=== PATIENT | female | born 1935 | race Caucasian/White ===

== ENCOUNTER → 2016-08-10 | Outpatient (CLI) | payer MEDICARE ==
--- NOTE | 2016-08-10 08:45 | BD ---
EXAMINATION TYPE: MG DEXA axial skeleton. DATE OF EXAM: 08/10/2016 7:55 AM COMPARISON: NONE CLINICAL HISTORY: Height: 65.7 IN Weight: 157 LBS FRAX RISK QUESTIONS: Alcohol (3 or more units per day): NO Family History (Parent hip fracture): YES MOTHER Glucocorticoids (More than 3mos): NO (Ex: prednisone, prednisolone, methylprednisolone, dexamethasone, and hydrocortisone). History of Fracture in Adulthood: NO Secondary Osteoporosis: 1. Type 1 Diabetes: NO 2. Hyperthyroidism: NO 3. Menopause before 45: NO 4. Malnutrition: NO 5. Chronic liver disease: NO Rheumatoid Arthritis: NO Current Tobacco Use: NO RISK FACTORS HISTORY OF: Active: YES Postmenopausal woman: AGE 47 Take estrogen and/or progesterone medications: NOT NOW How long: AGE 47 - 71 MEDICATIONS: Thyroid Medications: YES Which medication: Synthroid How Lon+ YRS Additional Medications: CALCIUM, VIT D, SYNTHROID,LISINIPRIL, LIPITOR, BABY ASPIRIN, CURCUMIN-TURMERI C, FISH OIL, FISH OIL, Additional History: THYROID CANCER WITH ORAL RADIATION AGE 71 EXAM MEASUREMENTS: Bone mineral densitometry was performed using the [employer] System. Bone mineral density as measured about the Lumbar spine is: ----- L1-L4(G/cm2): 1.320 T Score Values are as follows: ----- L2: -0.5 ----- L3: 2.3 ----- L4: 3.0 ----- L1-L4: 1.2 Bone mineral density has: Increased 2.9% since study of: 10/12/2001 Bone mineral density about the R hip (g/cm2): 0.906 Bone mineral density about the L hip (g/cm2): 0.739 T Score values are as follows: -----R Neck: -0.9 -----L Neck: -2.2 -----R Intertrochanter: -2.3 -----L Intertrochanter: -2.0 Bone mineral density has: Decreased -12.9% since study of: 10/12/2001 IMPRESSION: Osteopenia (T Score between -2.5 and -1 as noted by T score values There is slightly increased risk of fracture and the patient may be considered for treatment. Re-Screen 1-2 years. NOTE: T-SCORE=SD OF THE YOUNG ADULT MEAN.
--- NOTE | 2016-08-11 12:56 | MM ---
Reason for exam: screening (asymptomatic). Last mammogram was performed 1 year and 2 months ago. History: Patient is postmenopausal and has history of other cancer at age 70. Took estrogen for 26 years beginning at age 47. Physical Findings: A clinical breast exam by your physician is recommended on an annual basis and results should be correlated with mammographic findings. MG 3D Screening Mammo W/Cad Bilateral CC and MLO view(s) were taken. Prior study comparison: June 02, 2015, bilateral MG 3d screening mammo w/cad. April 01, 2014, bilateral MG screening mammo w CAD. The breast tissue is heterogeneously dense. This may lower the sensitivity of mammography. There is no discrete abnormality. No significant changes when compared with prior studies. ASSESSMENT: Negative, BI-RAD 1 RECOMMENDATION: Routine screening mammogram of both breasts in 1 year.
== END | disposition home or self-care (01) ==
LOC: RADMAMWWP 07:49
PROVIDERS: ATTEND Internal Medicine
DX: Z12.31 Encounter for screening mammogram for malignant neoplasm of breast (principal); Z13.820 Encounter for screening for osteoporosis; M85.80 Other specified disorders of bone density and structure, unspecified site; N95.1 Menopausal and female climacteric states
CPT/HCPCS: 77080; 77063; G0202

== ENCOUNTER 2017-05-05 11:04 | Emergency (ER) | payer MEDICARE ==
[2017-05-05 11:14] VITALS: RESP 16; TEMP 97.9
[2017-05-05] MEDS ORDERED: ASPIRIN 81 MG PO STA (11:25)
[2017-05-05] MEDS ORDERED: NITROGLYCERIN SL TABS 0.4 MG TAB SUBLINGUAL STA (11:25)
--- NOTE | 2017-05-05 11:46 | ED ---
General Adult HPI - General Chief complaint: Back Pain/Injury Stated complaint: Left shoulder pain Time Seen by Provider: 05/05/17 11:15 Source: patient, RN notes reviewed Mode of arrival: ambulatory Limitations: no limitations - History of Present Illness Initial comments: Patient 81-year-old female who presents emergency room today with a chief complaint of pain to the left shoulder over the last 2 days. Patient does admit that it seems to be a constant ache. Denies any injury or trauma. States that started 2 days ago. States that she's had similar pain in the past but is never lasted this long. States usually goes away within the same today when she feels it. She states that seems to be better in the past when she would massage the area. She states seems feels slightly better when she holds her arm up in the air. She states it's not particularly tender on palpation or with movements. Denies any other complaints. Patient denies any recent fever, chills, shortness of breath, chest pain, back pain, abdominal pain, nausea or vomiting, numbness or tingling, dysuria or hematuria, constipation or diarrhea, headaches or visual changes, or any other complaints. - Related Data Home Medications Medication Instructions Recorded Confirmed Cholecalciferol [Vitamin D3] 2,000 unit PO DAILY 06/20/14 05/05/17 Levothyroxine Sodium [Synthroid] 125 mcg PO DAILY 06/20/14 05/05/17 Lisinopril [Zestril] 2.5 mg PO DAILY 06/20/14 05/05/17 Atorvastatin [Lipitor] 10 mg PO HS 05/18/16 05/05/17 Polyethylene Glycol 3350 [Miralax] 17 gm PO DAILY PRN 05/05/17 05/05/17 Previous Rx's Medication Instructions Recorded Hydrocodone/Acetaminophen [[place] 1 each PO Q6HR PRN #15 tab 05/05/17 5-325] Allergies Allergy/AdvReac Type Severity Reaction Status Date / Time amoxicillin Allergy Itching Verified 05/05/17 11:56 naproxen [From Naprosyn] Allergy Itching Verified 05/05/17 11:56 tetanus and diphtheria Allergy Redness, Verified 05/05/17 11:59 toxoids swelling epinephrine [From Adrenalin] AdvReac Rapid Verified 05/05/17 11:56 Heart Rate epinephrine HCl AdvReac Rapid Verified 05/05/17 11:56 [From Adrenalin] Heart Rate ibuprofen [From Motrin] AdvReac Unknown Verified 05/05/17 11:56 morphine AdvReac Nausea & Verified 05/05/17 11:56 Vomiting Review of Systems ROS Statement: Those systems with pertinent positive or pertinent negative responses have been documented in the HPI. ROS Other: All systems not noted in ROS Statement are negative. Past Medical History Past Medical History: Cancer, Hyperlipidemia, Hypertension, Osteoarthritis (OA) , Skin Disorder, Vascular Disorder Additional Past Medical History / Comment(s): Thyroid cancer, varicose veins, wound left leg from a fall. 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 History of Any Multi-Drug Resistant Organisms: None Reported Past Surgical History: Cholecystectomy, Hysterectomy, Joint Replacement, Tubal Ligation Additional Past Surgical History / Comment(s): thyroid removed bladder total hip replacemnet Past Anesthesia/Blood Transfusion Reactions: Postoperative Nausea & Vomiting ( PONV) Past Psychological History: No Psychological Hx Reported Smoking Status: Never smoker Past Drug Use History: None Reported - Past Family History Brother(s) Family Medical History: Cancer Mother Family Medical History: Hypertension, Rheumatoid Arthritis (RA) Additional Family Medical History / Comment(s): deafness. age 88 heart related Father Family Medical History: Pulmonary Embolus Additional Family Medical History / Comment(s): from blood clot from complications of MVA age 72. General Exam - General Exam Comments Initial Comments: General: The patient is awake and alert, in no distress, and does not appear acutely ill. Eye: Pupils are equal, round and reactive to light, extra-ocular movements are intact. No nystagmus. There is normal conjunctiva bilaterally. No signs of icterus. Ears, nose, mouth and throat: There are moist mucous membranes and no oral lesions. Neck: The neck is supple, there is no tenderness or JVD. Cardiovascular: There is a regular rate and rhythm. No murmur, rub or gallop is appreciated. Respiratory: Lungs are clear to auscultation, respirations are non-labored, breath sounds are equal. No wheezes, stridor, rales, or rhonchi. Gastrointestinal: Soft, non-distended, non-tender abdomen without masses or organomegaly noted. There is no rebound or guarding present. No CVA tenderness. Bowel sounds are unremarkable. Musculoskeletal: Normal ROM, no tenderness. Strength 5/5. Sensation intact. Pulses equal bilaterally 2+. Neurological: A&O x 3. CN II-XII intact, There are no obvious motor or sensory deficits. Coordination appears grossly intact. Speech is normal. Skin: Skin is warm and dry and no rashes or lesions are noted. Psychiatric: Cooperative, appropriate mood & affect, normal judgment. Limitations: no limitations Course Vital Signs 05/05/17 05/05/17 11:10 12:42 Temperature 97.9 F Pulse Rate 74 71 Respiratory 16 16 Rate Blood Pressure 134/84 141/73 O2 Sat by Pulse 98 99 Oximetry EKG Findings - EKG Comments: EKG Findings:: EKG performed at 11:30: Shows sinus rhythm with a first-degree AV block at 69 bpm IL interval 224. QRS 86. QT/QTC 376/402. No acute ST changes. Medical Decision Making - Medical Decision Making Case discussed in detail with attending physician Dr. Redding. Patient reexamined at this time shows no signs of distress resting comfortably. Patient 's EKG shows no acute abnormalities. Patient's labs are unremarkable. Patient does note that this pain has been for the last 2 days is positional. Patient is comfortable being discharged home. Advised short course of ibuprofen as she states she has taken this before without any problem. Advised that she can use [place] that she does have at home. Patient will also be given a prescription she cannot find her medication. Advised the family doctor over the next 2 days return to emergency room if any symptoms increase or worsen. - Lab Data Result diagrams: 05/05/17 11:45 05/05/17 11:45 Lab Results 05/05/17 05/05/17 05/05/17 Range/Units 11:45 11:45 11:45 WBC 9.3 (3.8-10.6) k/uL RBC 5.11 (3.80-5.40) m/uL Hgb 14.0 (11.4-16.0) gm/dL Hct 42.2 (34.0-46.0) % MCV 82.6 (80.0-100.0) fL MCH 27.4 (25.0-35.0) pg MCHC 33.2 (31.0-37.0) g/dL RDW 15.4 (11.5-15.5) % Plt Count 248 (150-450) k/uL Neutrophils % 76 % Lymphocytes % 17 % Monocytes % 5 % Eosinophils % 1 % Basophils % 0 % Neutrophils # 7.0 (1.3-7.7) k/uL Lymphocytes # 1.6 (1.0-4.8) k/uL Monocytes # 0.5 (0-1.0) k/uL Eosinophils # 0.1 (0-0.7) k/uL Basophils # 0.0 (0-0.2) k/uL PT (9.0-12.0) sec INR (<1.2) APTT (22.0-30.0) sec Sodium 136 L (137-145) mmol/L Potassium 4.5 (3.5-5.1) mmol/L Chloride 104 (98-107) mmol/L Carbon Dioxide 24 (22-30) mmol/L Anion Gap 8 mmol/L BUN 19 H (7-17) mg/dL Creatinine 0.70 (0.52-1.04) mg/dL Est GFR (MDRD) Af Amer >60 (>60 ml/min/1.73 sqM) Est GFR (MDRD) Non-Af >60 (>60 ml/min/1.73 sqM) Glucose 108 H (74-99) mg/dL Calcium 9.8 (8.4-10.2) mg/dL Magnesium 2.0 (1.6-2.3) mg/dL Total Bilirubin 0.6 (0.2-1.3) mg/dL AST 26 (14-36) U/L ALT 42 (9-52) U/L Alkaline Phosphatase 126 (38-126) U/L Total Creatine Kinase 123 (30-135) U/L CK-MB (CK-2) 3.4 H* (0.0-2.4) ng/mL CK-MB (CK-2) Rel Index 2.8 Troponin I <0.012 (0.000-0.034) ng/mL Total Protein 6.2 L (6.3-8.2) g/dL Albumin 4.1 (3.5-5.0) g/dL 05/05/ Range/Units 11:45 WBC (3.8-10.6) k/uL RBC (3.80-5.40) m/uL Hgb (11.4-16.0) gm/dL Hct (34.0-46.0) % MCV (80.0-100.0) fL MCH (25.0-35.0) pg MCHC (31.0-37.0) g/dL RDW (11.5-15.5) % Plt Count (150-450) k/uL Neutrophils % % Lymphocytes % % Monocytes % % Eosinophils % % Basophils % % Neutrophils # (1.3-7.7) k/uL Lymphocytes # (1.0-4.8) k/uL Monocytes # (0-1.0) k/uL Eosinophils # (0-0.7) k/uL Basophils # (0-0.2) k/uL PT 10.1 (9.0-12.0) sec INR 1.0 (<1.2) APTT 22.4 (22.0-30.0) sec Sodium (137-145) mmol/L Potassium (3.5-5.1) mmol/L Chloride (98-107) mmol/L Carbon Dioxide (22-30) mmol/L Anion Gap mmol/L BUN (7-17) mg/dL Creatinine (0.52-1.04) mg/dL Est GFR (MDRD) Af Amer (>60 ml/min/1.73 sqM) Est GFR (MDRD) Non-Af (>60 ml/min/1.73 sqM) Glucose (74-99) mg/dL Calcium (8.4-10.2) mg/dL Magnesium (1.6-2.3) mg/dL Total Bilirubin (0.2-1.3) mg/dL AST (14-36) U/L ALT (9-52) U/L Alkaline Phosphatase (38-126) U/L Total Creatine Kinase (30-135) U/L CK-MB (CK-2) (0.0-2.4) ng/mL CK-MB (CK-2) Rel Index Troponin I (0.000-0.034) ng/mL Total Protein (6.3-8.2) g/dL Albumin (3.5-5.0) g/dL Disposition Clinical Impression: Shoulder pain Disposition: HOME SELF-CARE Condition: Good Instructions: Shoulder Pain (ED) Additional Instructions: Please follow-up with family doctor over the next 2 days. Please use medications as discussed and return here to the emergency room if any symptoms increase or worsen or fail concerns. Prescriptions: Hydrocodone/Acetaminophen [[place] 5-325] 1 each PO Q6HR PRN #15 tab PRN Reason: Pain Referrals: Ness Williamson MD [Primary Care Provider] - 1-2 days Time of Disposition: 12:51
[2017-05-05 12:01] LABS: Basophils % (A) 0 %; CH 28.5; CHCM 34.8; Eosinophils # (A) 0.1 k/uL (0-0.7); Eosinophils % (A) 1 %; HCT 42.2 % (34.0-46.0); HDW 2.96; Luc # (Auto) 0.09; Luc % (Auto) 1; Lymphocytes # (A) 1.6 k/uL (1.0-4.8); Lymphocytes % (A) 17 %; MCH 27.4 pg (25.0-35.0); MCHC 33.2 g/dL (31.0-37.0); MCV 82.6 fL (80.0-100.0); Mean Platelet Volume 7.2; Monocytes # (A) 0.5 k/uL (0-1.0); Monocytes % (A) 5 %; Neutrophils % (A) 76 %; RBC 5.11 m/uL (3.80-5.40); RDW 15.4 % (11.5-15.5); WBC 9.3 k/uL (3.8-10.6); WBC (Perox) 9.28
--- NOTE | 2017-05-05 12:09 | XR ---
EXAMINATION TYPE: XR chest 2V DATE OF EXAM: 05/05/2017 COMPARISON: 10/30/1713 HISTORY: Shortness of breath TECHNIQUE: Frontal and lateral views of the chest are obtained. FINDINGS: Scattered senescent parenchymal changes noted. Hyperinflation compatible with COPD. No evidence for infiltrate. No evidence for atelectasis. Heart size is stable. Mediastinal structures are stable and grossly unremarkable. No evidence for hilar prominence. Degenerative changes dorsal spine. IMPRESSION: 1. No evidence for acute pulmonary disease.
[2017-05-05 12:10] LABS: Partial Thromboplastin Time 22.4 sec (22.0-30.0); Prothrombin Time 10.1 sec (9.0-12.0)
[2017-05-05 12:11] LABS: ALT 42 U/L (9-52); AST 26 U/L (14-36); Alkaline Phosphatase 126 U/L (38-126); Anion Gap 8 mmol/L; Blood Urea Nitrogen 19 mg/dL (7-17); Calcium 9.8 mg/dL (8.4-10.2); Carbon Dioxide 24 mmol/L (22-30); Chloride 104 mmol/L (98-107); Glucose 108 mg/dL (74-99); Non-African American GFR(MDRD) >60 (>60 ml/min/1.73 sqM); Potassium 4.5 mmol/L (3.5-5.1); Sodium 136 mmol/L (137-145); Total Bilirubin 0.6 mg/dL (0.2-1.3); Total Protein 6.2 g/dL (6.3-8.2)
[2017-05-05 12:20] LABS: Creatine Kinase 123 U/L (30-135)
[2017-05-05 12:33] LABS: Troponin I <0.012 ng/mL (0.000-0.034)
[2017-05-05 12:34] LABS: Creatine Kinase MB 3.4 ng/mL (0.0-2.4)
[2017-05-05 12:44] VITALS: BP 141/73; PULSE 71
== END 2017-05-05 13:13 | disposition home or self-care (01) ==
LOC: EC 11:04
DX: M25.512 Pain in left shoulder (principal); E78.5 Hyperlipidemia, unspecified; I10 Essential (primary) hypertension; Z85.850 Personal history of malignant neoplasm of thyroid; Z96.649 Presence of unspecified artificial hip joint; Z88.0 Allergy status to penicillin; Z88.5 Allergy status to narcotic agent; Z88.6 Allergy status to analgesic agent; Z88.7 Allergy status to serum and vaccine; Z88.8 Allergy status to other drugs, medicaments and biological substances; Z79.899 Other long term (current) drug therapy
CPT/HCPCS: 36415; 71020; 80053; 82550; 82553; 83735; 84484; 85025; 85610; 85730; 93005; 99284

== ENCOUNTER → 2017-05-09 | Outpatient (CLI) | payer MEDICARE ==
--- NOTE | 2017-05-09 11:33 | XR ---
EXAMINATION TYPE: XR cervical spine comp DATE OF EXAM: 05/09/2017 COMPARISON: NONE HISTORY: Pain TECHNIQUE: Four views are submitted. FINDINGS: The odontoid is intact. There are no compression deformities. The prevertebral soft tissue structur es are within normal limits. There is multilevel degenerative disc disease with anterior spur format ion. There is a 2 mm anterolisthesis of C2 on C3. Severe degenerative disc disease at C5-C6 with post erior spondylosis. Moderate to severe changes C6-C7. Multilevel facet arthropathy. There is multileve l foraminal encroachment. Findings appear greater on the left. IMPRESSION: 1. Multilevel moderate to severe degenerative disc disease with most marked findings at C5-C6 and C6- C7. Foraminal encroachment suspected recommend follow-up MRI. 2. Slight anterolisthesis C2 on C3 also could be assessed with MRI.
== END | disposition home or self-care (01) ==
LOC: RADXRMAIN 10:44
PROVIDERS: ATTEND Internal Medicine
DX: M50.322 Other cervical disc degeneration at C5-C6 level (principal); M43.12 Spondylolisthesis, cervical region
CPT/HCPCS: 72050

== ENCOUNTER → 2017-08-26 | Outpatient (CLI) | payer MEDICARE ==
--- NOTE | 2017-08-29 12:49 | MM ---
Reason for exam: screening (asymptomatic). Last mammogram was performed 1 year and 1 month ago. History: Patient is postmenopausal and has history of other cancer at age 70. Took estrogen for 26 years beginning at age 47. Physical Findings: A clinical breast exam by your physician is recommended on an annual basis and results should be correlated with mammographic findings. MG 3D Screening Mammo W/Cad Bilateral CC and MLO view(s) were taken. Prior study comparison: August 10, 2016, bilateral MG 3d screening mammo w/cad. June 02, 2015, bilateral MG 3d screening mammo w/cad. There are scattered fibroglandular densities. No significant changes when compared with prior studies. ASSESSMENT: Negative, BI-RAD 1 RECOMMENDATION: Routine screening mammogram of both breasts in 1 year.
== END | disposition home or self-care (01) ==
LOC: RADMAMWWP 14:44
PROVIDERS: ATTEND Internal Medicine
DX: Z12.31 Encounter for screening mammogram for malignant neoplasm of breast (principal)
CPT/HCPCS: 77063; 77067

== ENCOUNTER → 2017-09-21 | Outpatient (CLI) | payer MEDICARE ==
--- NOTE | 2017-09-21 15:03 | XR ---
Left knee HISTORY: Left knee pain 3 views of the left knee, comparison to prior left leg 06/20/2014 There is marginal spurring present tricompartmentally. Alignment is maintained. Joint space loss is n oted especially at the patellofemoral joint and also the medial compartment greater than lateral. Sub chondral sclerosis is noted especially at the patellofemoral joint. Distal femur shows chronic anteri or cortical defect on the lateral exam. There may be a small joint effusion. IMPRESSION: Osteoarthritis.
== END | disposition home or self-care (01) ==
LOC: RADXRMAIN 12:17
PROVIDERS: ATTEND Internal Medicine
DX: M17.12 Unilateral primary osteoarthritis, left knee (principal)

== ENCOUNTER → 2018-01-09 | Outpatient (CLI) | payer MEDICARE ==
--- NOTE | 2018-01-09 23:11 | MR ---
EXAMINATION TYPE: MR cervical spine wo con DATE OF EXAM: 01/09/2018 COMPARISON: 05/12/2017 HISTORY: Neck pain TECHNIQUE: Multiplanar, multisequence images of the cervical spine were acquired. The cervical vertebra have normal alignment. There is mild narrowing of the disc spaces and more noti ceable at C5-6. There is small posterior disc herniation at C6-7. There is developmentally adequate c anal and no significant spinal stenosis. Spinal canal is narrowed to 7 to 8 mm at C6-7. There is also a minute posterior spurring and disc bulging at C3-3-4 C4-5 C5-6. There are small posterior disc her niation at T3-T4. Cervical spinal cord has normal signal pattern. There is no edema. There is no comp ression fracture. The posterior elements are intact. I see no bony destructive process. IMPRESSION: Mild multilevel spondylotic changes. Mild posterior C6-7 cervical disc herniation without significant spinal stenosis. No change compared to old exam. No fracture.
== END | disposition home or self-care (01) ==
LOC: RADMRIMAIN 18:36
PROVIDERS: ATTEND Internal Medicine
DX: M47.22 Other spondylosis with radiculopathy, cervical region (principal); M50.123 Cervical disc disorder at C6-C7 level with radiculopathy
CPT/HCPCS: 72141

== ENCOUNTER → 2018-04-27 | Outpatient (CLI) | payer MEDICARE ==
--- NOTE | 2018-04-28 10:20 | ECHOF ---
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 This was a technically good study. The left ventricular size is normal. Left ventricular wall thickness is normal. Overall left vent ricular systolic function is normal with, an EF between 55 - 60 %. The right ventricle is normal in size and function. The left atrium is normal in size. The right atrium is normal in size. There is mild aortic regurgitation. The mitral valve is normal. There is trace mitral regurgitation. Trace tricuspid regurgitation present. The right ventricular systolic pressure, as measured by Dopp ler, is 20.42mmHg. Pulmonic valve appears structurally normal. The aortic root size is normal. Normal inferior vena cava with normal inspiratory collapse consistent with estimated right atrial pre ssure of 5 mmHg. The pericardium is normal. CONCLUSIONS -------- 1. Sinus rhythm. 2. This was a technically good study. 3. The left ventricular size is normal. 4. Left ventricular wall thickness is normal. 5. Overall left ventricular systolic function is normal with, an EF between 55 - 60 %. 6. The right ventricle is normal in size and function. 7. The left atrium is normal in size. 8. The right atrium is normal in size. 9. There is mild aortic regurgitation. 10. The mitral valve is normal. 11. There is trace mitral regurgitation. 12. Trace tricuspid regurgitation present. 13. The right ventricular systolic pressure, as measured by Doppler, is 20.42mmHg. 14. Pulmonic valve appears structurally normal. 15. The aortic root size is normal. 16. Normal inferior vena cava with normal inspiratory collapse consistent with estimated right atrial pressure of 5 mmHg. 17. The pericardium is normal. COSTUME RENTAL CLERK: Apolonia Murray RDCS
--- NOTE | 2018-04-28 10:53 | US ---
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 EXAM MEASUREMENTS: RIGHT: Peak Systolic Velocity (PSV) cm/sec ----- Right CCA: 94.2 ----- Right ICA: 76.8 ----- Right ECA: 67.4 ICA/CCA ratio: 0.8 RIGHT: End Diastole cm/sec ----- Right CCA: 27.3 ----- Right ICA: 29.0 ----- Right ECA: 67.4 LEFT: Peak Systolic Velocity (PSV) cm/sec ----- Left CCA: 80.7 ----- Left ICA: 68.7 ----- Left ECA: 71.9 ICA/CCA ratio: 0.8 LEFT: End Diastole cm/sec ----- Left CCA: 23.1 ----- Left ICA: 22.5 ----- Left ECA: 13.8 VERTEBRALS (direction of flow): Right Vertebral: Antegrade Left Vertebral: Antegrade Rhythm: Normal No significant velocity elevations. IMPRESSION: 1. No evidence of significant hemodynamic stenosis. 2 intimal thickening and small focal areas of c alcified plaque. Criteria for Assigning % of Stenosis / Diameter reduction (Estimation based on the indirect measurements of the internal carotid artery velocities (ICA PSV). 1. Normal (no stenosis)=ICA PSV < 125 cm/s: ratio < 2.0: ICA EDV<40 cm/s. 2. Less than 50% stenosis=ICA PSV < 125 cm/s: ratio < 2.0: ICA EDV<40 cm/s. 3. 50 to 69% stenosis=ICA PSV of 125 to 230 cm/s: ration 2.0 ? 4.0: ICA EDV 40-100 cm/s. 4. Greater than 70% stenosis to near occlusion= ICA PSV > 230 cm/s: ratio > 4.0: ICA EDV > 100 cm/s. 5. Near occlusion= ICA PSV velocities may be low or undetectable: variable ratio and ICA EDV. 6. Total occlusion=unable to detect flow.
== END | disposition home or self-care (01) ==
LOC: RADECHMAIN 14:32
PROVIDERS: ATTEND Internal Medicine
DX: I35.1 Nonrheumatic aortic (valve) insufficiency (principal); I65.23 Occlusion and stenosis of bilateral carotid arteries; I77.810 Thoracic aortic ectasia
CPT/HCPCS: 93306; 93880

== ENCOUNTER → 2018-08-30 | Outpatient (CLI) | payer MEDICARE ==
--- NOTE | 2018-08-30 13:25 | MM ---
Reason for exam: screening (asymptomatic). Last mammogram was performed 1 year ago. History: Patient is postmenopausal and has history of other cancer at age 70. Took estrogen for 26 years beginning at age 47. Physical Findings: A clinical breast exam by your physician is recommended on an annual basis and results should be correlated with mammographic findings. MG 3D Screening Mammo W/Cad Bilateral CC and MLO view(s) were taken. Prior study comparison: August 26, 2017, bilateral MG 3d screening mammo w/cad. August 10, 2016, bilateral MG 3d screening mammo w/cad. The breast tissue is heterogeneously dense. This may lower the sensitivity of mammography. There is no discrete abnormality. No significant changes when compared with prior studies. ASSESSMENT: Negative, BI-RAD 1 RECOMMENDATION: Routine screening mammogram of both breasts in 1 year.
== END ==
LOC: RADMAMWWP 06:54
PROVIDERS: ATTEND Internal Medicine
DX: Z12.31 Encounter for screening mammogram for malignant neoplasm of breast (principal)
CPT/HCPCS: 77063; 77067

== ENCOUNTER → 2018-10-09 | Outpatient (CLI) | payer MEDICARE | END | disposition home or self-care (01) | LOC: LABWHC1 10:24 | PROVIDERS: ATTEND Obstetrics & Gynecology | DX: N39.0 Urinary tract infection, site not specified (principal) | CPT/HCPCS: 87086 ==

== ENCOUNTER 2018-10-20 11:49 | Day surgery (SDC) | payer MEDICARE ==
[2018-10-19 10:18] VITALS: BMI 24.2
[2018-10-20 13:07] VITALS: TEMP 97.6
[2018-10-20] MEDS ORDERED: LIDOCAINE 1% 20 ML VIAL (10MG/ML) FOR IV START INTRADERMA ONE (13:14)
[2018-10-20] MEDS ORDERED: LACTATED RINGERS 1,000 ML IV ONE (13:14)
[2018-10-20] MEDS ORDERED: PROPOFOL 10 MG/ML 20 ML VIAL IV ONE (13:18)
--- NOTE | 2018-10-20 13:40 | P.PCN ---
Date of Procedure: 10/20/18 Procedure(s) Performed: BRIEF HISTORY: Patient is a 83-year-old pleasant white female, scheduled for an elective colonoscopy as a part of evaluation of Hemoccult-positive stool. PROCEDURE PERFORMED: Colonoscopy with snare polypectomy. PREOPERATIVE DIAGNOSIS: Hemoccult-positive stool. IV sedation per Anesthesia. PROCEDURE: After informed consent was obtained, the patient, was brought into the endoscopy unit. IV sedation was administered by Anesthesia under continuous monitoring. Digital rectal examination was normal. Initially the Olympus CF-160 flexible video colonoscope was then inserted in the rectum, gradually advanced into the cecum without any difficulty. Careful examination was performed as the scope was gradually being withdrawn. Ileocecal valve and the appendiceal orifice were visualized and appeared normal. Prep was fair. In the base of the cecum there was a 7-8 mm sessile polyp that was removed by snare polypectomy. Mucosa of the cecum, ascending colon, transverse colon, descending colon, sigmoid colon, and rectum appeared normal. Scattered left sided diverticulosis seen. Retroflexion was performed in the rectum and no lesions were seen. The patient tolerated the procedure well. IMPRESSION: 7-8 mm sessile cecal polyp status post polypectomy Scattered left-sided diverticulosis RECOMMENDATIONS: Findings of this examination were discussed with the patient as well as her family. She was advised to follow with the biopsy results. She'll continue with a high-fiber diet and fiber supplements as needed..
[2018-10-20 14:07] VITALS: BP 138/78; PULSE 78; RESP 18
== END 2018-10-20 14:16 | disposition home or self-care (01) ==
LOC: ORWHC2ENDO 11:49
PROVIDERS: ATTEND Internal Medicine Gastroenterology
DX: K57.30 Diverticulosis of large intestine without perforation or abscess without bleeding (principal); D12.0 Benign neoplasm of cecum; Z79.890 Hormone replacement therapy; Z79.899 Other long term (current) drug therapy; Z88.6 Allergy status to analgesic agent; Z88.1 Allergy status to other antibiotic agents; Z88.8 Allergy status to other drugs, medicaments and biological substances; I10 Essential (primary) hypertension; E78.5 Hyperlipidemia, unspecified; M19.90 Unspecified osteoarthritis, unspecified site; Z79.82 Long term (current) use of aspirin
CPT/HCPCS: 88305; 45385; J2704

== ENCOUNTER → 2019-04-30 | Outpatient (CLI) | payer MEDICARE | END | disposition home or self-care (01) | LOC: LABWHC1 09:09 | PROVIDERS: ATTEND Orthopaedic Surgery | DX: Z47.1 Aftercare following joint replacement surgery (principal); Z96.652 Presence of left artificial knee joint | CPT/HCPCS: 36415; 85652; 86140 ==

== ENCOUNTER → 2019-05-02 | Outpatient (CLI) | payer MEDICARE ==
--- NOTE | 2019-05-03 05:05 | MR ---
EXAMINATION TYPE: MR brain wo/w con DATE OF EXAM: 05/02/2019 COMPARISON: None HISTORY: Dizziness, arabella hearing loss, transient cerebral ischemia TECHNIQUE: Multiplanar, multisequence images of the brain and brainstem is performed without and with IV contras t, utilizing 7 mL intravenous Gadavist . FINDINGS: There is some mild cerebral atrophy. There is no mass effect nor midline shift. There is no sign of intracranial hemorrhage. There is no evidence of cortical infarct. On the T2 and FLAIR image s there are numerous foci of abnormal increased signal at the babcock-white matter junction of both cere bral hemispheres and adjacent to the lateral ventricles. Total number of lesions is more than 25. The se measure up to 10 mm. The brainstem is intact. Cerebellum is intact. Corpus callosum is intact. The sella turcica is intact. There is a 10 mm area of enhancement in the left posterior temporal lobe that is probably extra-axial and related to meningioma. There is normal enhancement of the venous sinuses. There is no evidence o f cerebral edema. There is mucosal thickening and mucus retention cysts in the maxillary sinuses. There is mucosal thic kening in the ethmoid sinuses. IMPRESSION: Mild atrophy. White matter signal changes could relate to both demyelinating disease and chronic small vessel ischemia. No evidence of cortical infarct. There is a 10 mm extra-axial enhancin g focus in the left posterior temporal lobe consistent with meningioma.
--- NOTE | 2019-05-03 10:37 | BD ---
EXAMINATION TYPE: Axial Bone Density DATE OF EXAM: 05/02/2019 COMPARISON: 08/10/2016 CLINICAL HISTORY: Height: 65.2 IN Weight: 154 LBS FRAX RISK QUESTIONS: Family History (Parent hip fracture): YES MOTHER RISK FACTORS HISTORY OF: Surgery to Hip(right): AGE 81 Active: YES Postmenopausal woman: AGE 46 Take estrogen and/or progesterone medications: NOT NOW How long: PREVIOUSLY TOOK FOR 20 YEARS MEDICATIONS: Thyroid Medications: YES Which medication: Synthroid How Lon YEARS Additional Medications: SYNTHROID,LISINOPRIL, LIPITOR, VIT D, BABY ASPIRIN EXAM MEASUREMENTS: Bone mineral densitometry was performed using the [employer] System. Bone mineral density as measured about the Lumbar spine is: ----- L1-L4(G/cm2): 1.213 T Score Values are as follows: ----- L2: -0.8 ----- L3: 1.4 ----- L4: 1.8 ----- L1-L4: 0.3 Bone mineral density has: Decreased -7.7% since study of: 08/10/2016 Bone mineral density about the L hip (g/cm2): 0.751 T Score values are as follows: -----L Neck: -2.1 -----L Total: -1.9 Bone mineral density has: Decreased -6.1% since study of: 08/10/2016 IMPRESSION: Osteopenia of the left femur. NOTE: T-SCORE=SD OF THE YOUNG ADULT MEAN.
== END | disposition home or self-care (01) ==
LOC: RADBDWWP 16:11
PROVIDERS: ATTEND Internal Medicine
DX: G31.9 Degenerative disease of nervous system, unspecified (principal); R90.89 Other abnormal findings on diagnostic imaging of central nervous system; M85.852 Other specified disorders of bone density and structure, left thigh
CPT/HCPCS: 77080; 70553; A9585

== ENCOUNTER → 2020-04-29 | Outpatient (CLI) | payer MEDICARE ==
--- NOTE | 2020-04-29 14:21 | XR ---
EXAM TYPE: LUMBAR SPINE X RAY SERIES COMPARISON: NONE HISTORY: Pain TECHNIQUE: 4 views are submitted. FINDINGS: Alignment is anatomic. The pedicles are intact. The transverse processes are intact. There is no s pondylolysis or spondylolisthesis. Curvature of the spine with multilevel hypertrophic and degenerat ann changes. Multilevel facet arthropathy. Surgical clips in the abdomen. IMPRESSION: 1. 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
== END | disposition home or self-care (01) ==
LOC: RADXRMAIN 13:56
PROVIDERS: ATTEND Internal Medicine
DX: M51.06 Intervertebral disc disorders with myelopathy, lumbar region (principal); M47.16 Other spondylosis with myelopathy, lumbar region
CPT/HCPCS: 72100

== ENCOUNTER → 2020-06-10 | Outpatient (CLI) | payer MEDICARE ==
--- NOTE | 2020-06-11 14:37 | MM ---
Reason for exam: screening (asymptomatic). Last mammogram was performed 1 year and 9 months ago. History: Patient is postmenopausal and has history of other cancer at age 70. Took estrogen for 26 years beginning at age 47. Physical Findings: A clinical breast exam by your physician is recommended on an annual basis and results should be correlated with mammographic findings. MG 3D Screening Mammo W/Cad Bilateral CC and MLO view(s) were taken. Prior study comparison: August 30, 2018, bilateral MG 3d screening mammo w/cad. August 26, 2017, bilateral MG 3d screening mammo w/cad. There are scattered fibroglandular densities. No significant changes when compared with prior studies. ASSESSMENT: Benign, BI-RAD 2 RECOMMENDATION: Routine screening mammogram of both breasts in 1 year.
== END | disposition home or self-care (01) ==
LOC: RADMAMWWP 09:15
PROVIDERS: ATTEND Internal Medicine
DX: Z12.31 Encounter for screening mammogram for malignant neoplasm of breast (principal)
CPT/HCPCS: 77063; 77067

== ENCOUNTER → 2020-06-26 | Outpatient (CLI) | payer MEDICARE ==
--- NOTE | 2020-06-26 15:44 | XR ---
EXAMINATION TYPE: XR Hip Complete RT DATE OF EXAM: 06/26/2020 COMPARISON: NONE HISTORY: Pain TECHNIQUE: One view submitted. FINDINGS: There is postsurgical change in near anatomic alignment. There is soft tissue edema and emphysema. IMPRESSION: 1. Postoperative change. Appears in near-anatomic alignment.
== END | disposition home or self-care (01) ==
LOC: RADXRMAIN 15:21
PROVIDERS: ATTEND Internal Medicine
DX: M25.551 Pain in right hip (principal); Z98.890 Other specified postprocedural states
CPT/HCPCS: 73502

== ENCOUNTER → 2020-08-25 | Outpatient (CLI) | payer MEDICARE ==
--- NOTE | 2020-08-25 15:46 | CT ---
EXAMINATION TYPE: CT hip RT wo con DATE OF EXAM: 08/25/2020 COMPARISON: Right hip x-ray June 26, 2020 HISTORY: RIGHT HIP PAIN. FALL INJURY X6 WEEKS AGO CT DLP: 566 mGycm Automated exposure control for dose reduction was used. FINDINGS: Metallic hardware from total right hip arthroplasty redemonstrated, position satisfactory and stable. Streak artifact noted making evaluation slightly suboptimal in adjacent tissue. No acute or subacute fracture is evident. Surrounding muscle bulk is maintained. No groin adenopathy or hernia. Visualize d pelvic structures show nondilated bowel loops. Scoliotic curvature in the lumbar spine with multile jinny spurring and disc space narrowing is present on the localizer. IMPRESSION: As above.
== END ==
LOC: RADCTMAIN 15:02
PROVIDERS: ATTEND Internal Medicine
DX: M25.551 Pain in right hip (principal); Z96.641 Presence of right artificial hip joint

== ENCOUNTER → 2021-08-19 | Outpatient (CLI) | payer MEDICARE ==
--- NOTE | 2021-08-19 12:16 | BD ---
EXAMINATION TYPE: Axial Bone Density DATE OF EXAM: 08/19/2021 COMPARISON: NONE CLINICAL HISTORY: Height: 5 FT 5 IN Weight: 133 FRAX RISK QUESTIONS: Alcohol (3 or more units per day): RT Family History (Parent hip fracture): YES Glucocorticoids (More than 3mos): NO (Ex: prednisone, prednisolone, methylprednisolone, dexamethasone, and hydrocortisone). History of Fracture in Adulthood: NO Secondary Osteoporosis: 1. Type 1 Diabetes: TYPE 2 2. Hyperthyroidism: CANCER THYROID REMOVED 3. Menopause before 45: NO 4. Malnutrition: NO 5. Chronic liver disease: NO Rheumatoid Arthritis: NO Current Tobacco Use: NO RISK FACTORS HISTORY OF: Surgery to Spine/Hip(right/left)/Wrist (right/left): RT HIP REPLACEMENT When: APPROX 4 YEARS AGO Family History of Osteoporosis: UNKNOWN Active: YES Diet low in dairy products/other sources of calcium: NO Postmenopausal woman: YES Take estrogen and/or progesterone medications: TOOK HRT NONE NOW Lost more than 2 inches in height since high school: NO Frequent falls: NO Poor Health: GOOD Hyperparathyroidism: NO Adrenal Insufficiency: NO MEDICATIONS: Thyroid Medications: YES Which medication: SYNTHROID How Lon YEARS AGO Additional Medications: SYNTHROID, LISINOPRIL, LIPITOR, BABY ASPIRIN Additional History: EXAM MEASUREMENTS: Bone mineral densitometry was performed using the [employer] System. Bone mineral density as measured about the Lumbar spine is: ----- L1-L4(G/cm2): 1.211 T Score Values are as follows: ----- L2: -0.3 ----- L3: 1.8 ----- L4: 1.0 ----- L1-L4: 0.3 Bone mineral density has: DECREASED -0.2 % since study of: 2018 Bone mineral density about the L hip (g/cm2): 0.727 T Score values are as follows: -----L Neck: -2.2 -----L Total: -2.4 Bone mineral density has: DECREASED -8.4 % since study of: 2019 IMPRESSION: Osteopenia bilateral femora. NOTE: T-SCORE=SD OF THE YOUNG ADULT MEAN.
--- NOTE | 2021-08-19 13:56 | MM ---
Reason for exam: screening (asymptomatic). Last mammogram was performed 1 year and 2 months ago. History: Patient is postmenopausal and has history of other cancer at age 70. Took estrogen for 26 years beginning at age 47. Physical Findings: A clinical breast exam by your physician is recommended on an annual basis and results should be correlated with mammographic findings. MG 3D Screening Mammo W/Cad Bilateral CC and MLO view(s) were taken. Prior study comparison: June 10, 2020, bilateral MG 3d screening mammo w/cad. August 30, 2018, bilateral MG 3d screening mammo w/cad. The breast tissue is heterogeneously dense. This may lower the sensitivity of mammography. Focal asymmetry upper outer left breast is stable. ASSESSMENT: Benign, BI-RAD 2 RECOMMENDATION: Routine screening mammogram of both breasts in 1 year.
== END | disposition home or self-care (01) ==
LOC: RADMAMWWP 09:29
PROVIDERS: ATTEND Internal Medicine
DX: Z12.31 Encounter for screening mammogram for malignant neoplasm of breast (principal); M85.852 Other specified disorders of bone density and structure, left thigh; M85.851 Other specified disorders of bone density and structure, right thigh; Z78.0 Asymptomatic menopausal state
CPT/HCPCS: 77063; 77067; 77080

== ENCOUNTER → 2021-11-19 | Outpatient (CLI) | payer MEDICARE ==
[2021-11-19 10:50] VITALS: BMI 21.6
== END ==
LOC: DBWHC3 09:02
PROVIDERS: ATTEND Internal Medicine
DX: E11.9 Type 2 diabetes mellitus without complications (principal); Z88.1 Allergy status to other antibiotic agents; Z88.7 Allergy status to serum and vaccine; Z88.5 Allergy status to narcotic agent; Z88.6 Allergy status to analgesic agent; Z88.8 Allergy status to other drugs, medicaments and biological substances
CPT/HCPCS: G0108 ×3

== ENCOUNTER 2022-02-03 09:23 | Inpatient (IN) | payer MEDICARE ==
[2022-02-03] MEDS ORDERED: SODIUM CHLORIDE 0.9% 500 ML 500 ML IV STA (09:49)
--- NOTE | 2022-02-03 10:09 | ED ---
General Adult HPI - General Chief complaint: Recheck/Abnormal Lab/Rx Stated complaint: abnormal labs Time Seen by Provider: 02/03/22 09:35 Source: patient, RN notes reviewed, old records reviewed Mode of arrival: ambulatory Limitations: no limitations - History of Present Illness Initial comments: This is an 86-year-old female presents emergency Department because her primary medical care doctor told her her hemoglobin was low. Patient states she has been feeling weak for the last 6 weeks is getting progressively worse. Patient states she's also been short of breath and when she stands she feels a little lightheaded. Patient denies any chest pain or palpitations. Patient denies any recent fever or cough. Patient states that she's had dark stools for a while but now they're back to normal color. Patient denies having any history of anemia. Patient denies any liver or kidney dysfunction that she knows of. - Related Data Home Medications Medication Instructions Recorded Confirmed Cholecalciferol [Vitamin D3] 2,000 unit PO DAILY 06/20/14 10/19/18 Levothyroxine Sodium [Synthroid] 125 mcg PO DAILY 06/20/14 10/19/18 lisinopriL [Zestril] 2.5 mg PO DAILY 06/20/14 10/19/18 Atorvastatin [Lipitor] 10 mg PO HS 05/18/16 10/19/18 polyethylene glycoL 3350 [Miralax] 17 gm PO DAILY PRN 05/05/17 10/19/18 Aspirin [Adult Low Dose Aspirin EC] 81 mg PO HS 10/19/18 10/19/18 Levothyroxine Sodium [Synthroid] 0.5 tab PO JIMENES 10/19/18 10/19/18 Allergies Allergy/AdvReac Type Severity Reaction Status Date / Time amoxicillin Allergy Itching Verified 02/03/22 09:33 naproxen [From Naprosyn] Allergy Itching Verified 02/03/22 09:33 tetanus and diphtheria Allergy Redness, Verified 02/03/22 09:33 toxoids swelling epinephrine [From Adrenalin] AdvReac Rapid Verified 02/03/22 09:33 Heart Rate epinephrine HCl AdvReac Rapid Verified 02/03/22 09:33 [From Adrenalin] Heart Rate ibuprofen [From Motrin] AdvReac Unknown Verified 02/03/22 09:33 morphine AdvReac Nausea & Verified 02/03/22 09:33 Vomiting Review of Systems ROS Statement: Those systems with pertinent positive or pertinent negative responses have been documented in the HPI. ROS Other: All systems not noted in ROS Statement are negative. Past Medical History Past Medical History: Cancer, Diabetes Mellitus, Hyperlipidemia, Hypertension, Osteoarthritis (OA), Thyroid Disorder, Vascular Disorder Additional Past Medical History / Comment(s): HX Thyroid cancer, varicose veins, Enlarged aorta (2.5cm). UTI LAST MO. HEMORRHOIDS; HX DIVERTICULOSIS. History of Any Multi-Drug Resistant Organisms: None Reported Past Surgical History: Bladder Surgery, Cholecystectomy, Hysterectomy, Joint Replacement, Tubal Ligation Additional Past Surgical History / Comment(s): thyroid removed, total Rt hip replacement, total lt knee. COLONOSCOPY Past Anesthesia/Blood Transfusion Reactions: Postoperative Nausea & Vomiting (PONV) Past Psychological History: No Psychological Hx Reported Smoking Status: Never smoker Past Alcohol Use History: None Reported Past Drug Use History: None Reported - Past Family History Brother(s) Family Medical History: Cancer Mother Family Medical History: Coronary Artery Disease (CAD) Additional Family Medical History / Comment(s): deafness. age 88 heart related Father Family Medical History: Pulmonary Embolus Additional Family Medical History / Comment(s): from blood clot from complications of MVA age 72. General Exam - General Exam Comments Initial Comments: GENERAL: Patient is well-developed and well-nourished. Patient is nontoxic and well- hydrated and is in mild distress. ENT: Neck is soft and supple. No significant lymphadenopathy is noted. Oropharynx is clear. Moist mucous membranes. Neck has full range of motion without eliciting any pain. EYES: The sclera were anicteric and conjunctiva is pale. Extraocular movements were intact and pupils were equal round and reactive to light. Eyelids were unremarkable. PULMONARY: Unlabored respirations. Good breath sounds bilaterally. No audible rales rhonchi or wheezing was noted. CARDIOVASCULAR: There is a regular rate and rhythm without any murmurs gallops or rubs. ABDOMEN: Soft and nontender with normal bowel sounds. SKIN: Skin is pale NEUROLOGIC: Patient is alert and oriented x3. Cranial nerves II through XII are grossly intact. Motor and sensory are also intact. Normal speech, volume and content. Symmetrical smile. MUSCULOSKELETAL: Normal extremities with adequate strength and full range of motion. LYMPHATICS: No significant lymphadenopathy is noted PSYCHIATRIC: Normal psychiatric evaluation. Limitations: no limitations Course Vital Signs 02/03/22 09:31 Temperature 98.7 F Pulse Rate 95 Respiratory 16 Rate Blood Pressure 138/62 O2 Sat by Pulse 100 Oximetry Medical Decision Making - Medical Decision Making Patient's stool occult test was positive. Patient's hemoglobin was 5.1. New. Patient received 2 units of packed red blood cells emergency department. I spoke with Dr. Williamson he agreed to admit the patient admitted the patient I wrote admitting orders I consult Dr. Coelho - Lab Data Result diagrams: 02/03/22 10:14 02/03/22 10:14 Lab Results 02/03/22 02/03/22 02/03/22 Range/Units 10:00 10:14 10:14 WBC 7.0 (3.8-10.6) k/uL RBC 2.56 L (3.80-5.40) m/uL Hgb 5.1 L* (11.4-16.0) gm/dL Hct 18.1 L* (34.0-46.0) % MCV 70.9 L (80.0-100.0) fL MCH 20.0 L (25.0-35.0) pg MCHC 28.2 L (31.0-37.0) g/dL RDW 16.5 H (11.5-15.5) % Plt Count 368 (150-450) k/uL MPV 7.2 Neutrophils % 76 % Lymphocytes % 11 % Monocytes % 5 % Eosinophils % 4 % Basophils % 1 % Neutrophils # 5.3 (1.3-7.7) k/uL Lymphocytes # 0.8 L (1.0-4.8) k/uL Monocytes # 0.4 (0-1.0) k/uL Eosinophils # 0.3 (0-0.7) k/uL Basophils # 0.0 (0-0.2) k/uL Hypochromasia Marked Poikilocytosis Moderate Anisocytosis Slight Microcytosis Moderate PT (9.0-12.0) sec INR (<1.2) APTT (22.0-30.0) sec Sodium (137-145) mmol/L Potassium (3.5-5.1) mmol/L Chloride (98-107) mmol/L Carbon Dioxide (22-30) mmol/L Anion Gap mmol/L BUN (7-17) mg/dL Creatinine (0.52-1.04) mg/dL Est GFR (CKD-EPI)AfAm (>60 ml/min/1.73 sqM) Est GFR (CKD-EPI)NonAf (>60 ml/min/1.73 sqM) Glucose (74-99) mg/dL Calcium (8.4-10.2) mg/dL Magnesium (1.6-2.3) mg/dL Total Bilirubin (0.2-1.3) mg/dL AST (14-36) U/L ALT (4-34) U/L Alkaline Phosphatase (38-126) U/L Troponin I (0.000-0.034) ng/mL Total Protein (6.3-8.2) g/dL Albumin (3.5-5.0) g/dL Stool Occult Blood Positive H (Negative) Blood Type A Positive Blood Type Recheck A Pos Bld Type Recheck Status No Antibody Screen NEGATIVE Crossmatch See Detail Spec Expiration Date 02/06/2022 - 231302/03/22 02/03/22 02/03/22 Range/Units 10:14 10:14 10:14 WBC (3.8-10.6) k/uL RBC (3.80-5.40) m/uL Hgb (11.4-16.0) gm/dL Hct (34.0-46.0) % MCV (80.0-100.0) fL MCH (25.0-35.0) pg MCHC (31.0-37.0) g/dL RDW (11.5-15.5) % Plt Count (150-450) k/uL MPV Neutrophils % % Lymphocytes % % Monocytes % % Eosinophils % % Basophils % % Neutrophils # (1.3-7.7) k/uL Lymphocytes # (1.0-4.8) k/uL Monocytes # (0-1.0) k/uL Eosinophils # (0-0.7) k/uL Basophils # (0-0.2) k/uL Hypochromasia Poikilocytosis Anisocytosis Microcytosis PT 11.0 (9.0-12.0) sec INR 1.0 (<1.2) APTT 19.8 L (22.0-30.0) sec Sodium 131 L (137-145) mmol/L Potassium 4.0 (3.5-5.1) mmol/L Chloride 98 (98-107) mmol/L Carbon Dioxide 22 (22-30) mmol/L Anion Gap 11 mmol/L BUN 20 H (7-17) mg/dL Creatinine 0.57 (0.52-1.04) mg/dL Est GFR (CKD-EPI)AfAm >90 (>60 ml/min/1.73 sqM) Est GFR (CKD-EPI)NonAf 84 (>60 ml/min/1.73 sqM) Glucose 180 H (74-99) mg/dL Calcium 8.6 (8.4-10.2) mg/dL Magnesium 1.8 (1.6-2.3) mg/dL Total Bilirubin 0.2 (0.2-1.3) mg/dL AST 19 (14-36) U/L ALT 16 (4-34) U/L Alkaline Phosphatase 94 (38-126) U/L Troponin I <0.012 (0.000-0.034) ng/mL Total Protein 5.5 L (6.3-8.2) g/dL Albumin 3.4 L (3.5-5.0) g/dL Stool Occult Blood (Negative) Blood Type Blood Type Recheck Bld Type Recheck Status Antibody Screen Crossmatch Spec Expiration Date Critical Care Time Critical Care Time: Yes Total Critical Care Time: 35 Disposition Clinical Impression: GI bleed, Anemia Disposition: ADMITTED IP TO THIS [facility] Referrals: Ness Williamson MD [Primary Care Provider] - 1-2 days Time of Disposition: 11:53
[2022-02-03 10:24] LABS: Anisocytosis Slight; Basophils % (A) 1 %; Eosinophils # (A) 0.3 k/uL (0-0.7); Eosinophils % (A) 4 %; Hypochromasia Marked; Lymphocytes # (A) 0.8 k/uL (1.0-4.8); Lymphocytes % (A) 11 %; MCHC 28.2 g/dL (31.0-37.0); MCV 70.9 fL (80.0-100.0); Mean Platelet Volume 7.2; Microcytosis Moderate; Monocytes # (A) 0.4 k/uL (0-1.0); Monocytes % (A) 5 %; Neutrophils # (A) 5.3 k/uL (1.3-7.7); Neutrophils % (A) 76 %; Platelet Count 368 k/uL (150-450); Poikilocytosis Moderate; RBC 2.56 m/uL (3.80-5.40); RDW 16.5 % (11.5-15.5)
[2022-02-03 10:37] LABS: ALT 16 U/L (4-34); AST 19 U/L (14-36); African American GFR (CKD) >90 (>60 ml/min/1.73 sqM); Albumin 3.4 g/dL (3.5-5.0); Alkaline Phosphatase 94 U/L (38-126); Anion Gap 11 mmol/L; Blood Urea Nitrogen 20 mg/dL (7-17); Calcium 8.6 mg/dL (8.4-10.2); Carbon Dioxide 22 mmol/L (22-30); Chloride 98 mmol/L (98-107); Glucose 180 mg/dL (74-99); Magnesium 1.8 mg/dL (1.6-2.3); Non-African American GFR(CKD) 84 (>60 ml/min/1.73 sqM); Sodium 131 mmol/L (137-145); Total Bilirubin 0.2 mg/dL (0.2-1.3); Total Protein 5.5 g/dL (6.3-8.2)
[2022-02-03 10:38] LABS: HCT 18.1 % (34.0-46.0); HGB 5.1 gm/dL (11.4-16.0)
[2022-02-03 10:51] LABS: Partial Thromboplastin Time 19.8 sec (22.0-30.0)
[2022-02-03] MEDS: SODIUM CHLORIDE 0.9% 1,000 ML IV ONE ×2 (11:59→17:47)
[2022-02-03] MEDS ORDERED: ACETAMINOPHEN TAB 500 MG TAB PO STA (12:03)
[2022-02-03] MEDS: LEVOTHYROXINE 125 MCG TAB PO SCH (12:55)
--- NOTE | 2022-02-03 14:12 | P.HPIM ---
History of Present Illness H&P Date: 02/03/22 HISTORY OF PRESENT ILLNESS This is an 86-year-old female with past medical history of hypertension, hyperlipidemia, hypothyroidism, vitamin D deficiency, constipation. Patient co mplains of weakness that has been ongoing for some time. Her daughter thought it was related to Remeron. Patient has dark stools with no bloody stools. She feels a minimal epigastric discomfort after she eats or when she is hungry . She had a colonoscopy done [address] Coelho which revealed 78 millimeter cecal polyp and scattered left-sided diverticulosis. Patient has not had an EGD done in the past. Patient was in the office yesterday and lab work was obtained, hemoglobin came back at 4.8 and patient was contacted this morning and instructed to go to the emergency center. Patient presented to [facility]. She was found to be afebrile, heart rate 95, blood pressure 138/62, pulse ox 100% on room air. WBC 7.0, hemoglobin 5.1, platelet count 368. INR 1.0. Sodium 131 otherwise electrolytes are normal. BUN 20 creatinine 0.57. Blood sugar 180. Liver function tests are normal. Calcium 8.6. Troponin negative. Stool for occult blood positive Patient was provided half liter of IV fluids, started on transfusion of 2 units of packed RBCs. Patient is seen today in the emergency center waiting for a bed on the [facility] floor. Her vital signs have been stable. Consult placed with Dr. Mainor Coelho REVIEW OF SYSTEMS Constitutional: No fever, no chills, no night sweats. No weight change. Reports weakness, reports fatigue, reports daytime sleepiness. EENT: No headache. No blurred vision or double vision, no loss of vision. No loss of Hearing, no ringing in the ears, no dizziness. No nasal drainage or congestion. No epistaxis. No sore throat. Lungs: No shortness of breath, cough, no sputum production. No wheezing. Cardiovascular: No chest pain, no lower extremity edema. No palpitations. No paroxysmal nocturnal dyspnea. No orthopnea. No lightheadedness or dizziness. No syncopal episodes. Abdominal: Reports occasional abdominal pain. No nausea, vomiting. No diarrhea. No constipation. Reports bloody or tarry stools. Reports loss of appetite. Genitourinary: No dysuria, increased frequency, urgency. No urinary retention. Musculoskeletal: No myalgias. Reports generalized muscle weakness, no gait dy sfunction, no frequent falls. No back pain. No neck pain. Integumentary: No wounds, no lesions. No rash or pruritus. No unusual bruising. No change in hair or nails. Neurologic: No aphasia. No facial droop. No change in mentation. No head injury. No headache. No paralysis. No paresthesia. Psychiatric: No depression. No anxiety. No mood swings. Endocrine: No abnormal blood sugars. No weight change. No excessive sweating or thirst. No cold intolerance. MEDICAL HISTORY Hypertension Hyperlipidemia Hypothyroidism Vitamin D deficiency Constipation SURGICAL HISTORY Cholecystectomy Hysterectomy Tubal ligation Left TKA 04/2019 Total hip replacement Thyroidectomy Bladder surgery Colonoscopy 10/2018 SOCIAL HISTORY Patient is a nonsmoker, no alcohol use, illicit drug use. FAMILY HISTORY Father at age 72 from PE following a motor vehicle accident. Mother at age 88 from coronary artery disease with history of rheumatoid arthritis, hypertension, [place]. Patient has one brother of cancer. Patient has 3 sons and one daughter with no major medical problems. PHYSICAL EXAMINATION Gen: This is a frail-appearing 86-year-old female. She is resting on ER stretcher and appears to be in no acute distress. The patient's daughter is at bedside. HEENT: Head is atraumatic, normocephalic. Pupils equal, round. Sclerae is anicteric. NECK: Supple. No JVD. No lymphadenopathy. No thyromegaly. LUNGS: Clear to auscultation. No wheezes or rhonchi. No intercostal retractions. HEART: First heart sound is depressed, second heart sound is normal, 2/6 systolic ejection murmur at the left sternal border, no S3 or S4. ABDOMEN: Soft. Bowel sounds are present. No masses. Mild epigastric tenderness with fullness. EXTREMITIES: No pedal edema. No calf tenderness. Dorsalis pedis palpable bilaterally. NEUROLOGICAL: Patient is awake, alert and oriented x3. Cranial nerves 2 through 12 are grossly intact. ASSESSMENT AND PLAN 1. Acute GI bleed most likely secondary to an upper GI source. Consult with Dr. Coelho with anticipated EGD on Tuesday morning, patient is currently nothing by mouth and will be started on clear liquid diet, continue patient on IV fluids 0.9 normal saline at 75 mL per hour, patient started on Protonix 40 mg IV push twice daily. 2. Acute blood loss anemia. Patient will be transfused 2 units of packed RBCs, continue to monitor CBC closely and transfuse as indicated. 3. Hypertension. Monitor blood pressure. 4. Hyperlipidemia. Hold atorvastatin. 5. Hypothyroidism. Continue levothyroxine at home dose. 6. Vitamin D deficiency. Hold vitamins for now. 7. GI prophylaxis. Protonix. 8. DVT prophylaxis. SCDs and MARTIN hose. Patient will be admitted to the hospital for a minimum of 2 night stay. DISCHARGE PLAN To be determined. PT and OT will be added once hemoglobin is stable. Impression and plan of care have been directed as dictated by the signing physician. Traci Crow nurse practitioner acting as scribe for signing physician. Past Medical History Past Medical History: Cancer, Diabetes Mellitus, Hyperlipidemia, Hypertension, Osteoarthritis (OA), Thyroid Disorder, Vascular Disorder Additional Past Medical History / Comment(s): HX Thyroid cancer, varicose veins, Enlarged aorta (2.5cm). UTI LAST MO. HEMORRHOIDS; HX DIVERTICULOSIS. History of Any Multi-Drug Resistant Organisms: None Reported Past Surgical History: Bladder Surgery, Cholecystectomy, Hysterectomy, Joint Replacement, Tubal Ligation Additional Past Surgical History / Comment(s): thyroid removed, total Rt hip replacement, total lt knee. COLONOSCOPY Past Anesthesia/Blood Transfusion Reactions: Postoperative Nausea & Vomiting (PONV) Past Psychological History: No Psychological Hx Reported Smoking Status: Never smoker Past Alcohol Use History: None Reported Past Drug Use History: None Reported - Past Family History Brother(s) Family Medical History: Cancer Mother Family Medical History: Coronary Artery Disease (CAD) Additional Family Medical History / Comment(s): deafness. age 88 heart re lated Father Family Medical History: Pulmonary Embolus Additional Family Medical History / Comment(s): from blood clot from complications of MVA age 72. Medications and Allergies Home Medications Medication Instructions Recorded Confirmed Type Levothyroxine Sodium [Synthroid] 125 mcg PO MOTUWETHFR 06/20/14 02/03/22 History polyethylene glycoL 3350 [Miralax] 17 gm PO DAILY 05/05/17 02/03/22 History Aspirin [Adult Low Dose Aspirin EC] 81 mg PO HS 10/19/18 02/03/22 History Levothyroxine Sodium [Synthroid] 187.5 tab PO SUSA 10/19/18 02/03/22 History Atorvastatin [Lipitor] 20 mg PO HS 02/03/22 02/03/22 History Cholecalciferol [Vitamin D3 (25 50 mcg PO DAILY 02/03/22 02/03/22 History Mcg = 1000 Iu)] Mirtazapine 7.5 mg PO HS 02/03/22 02/03/22 History Multivitamins, Thera [Multivitamin 1 tab PO DAILY 02/03/22 02/03/22 History (formulary)] Allergies Allergy/AdvReac Type Severity Reaction Status Date / Time amoxicillin Allergy Itching Verified 02/03/22 12:29 tetanus and diphtheria Allergy Redness, Verified 02/03/22 12:29 toxoids swelling epinephrine [From Adrenalin] AdvReac Rapid Verified 02/03/22 12:29 Heart Rate epinephrine HCl AdvReac Rapid Verified 02/03/22 12:29 [From Adrenalin] Heart Rate ibuprofen [From Motrin] AdvReac Unknown Verified 02/03/22 12:29 morphine AdvReac Nausea & Verified 02/03/22 12:29 Vomiting naproxen [From Naprosyn] AdvReac Itching & Verified 02/03/22 12:29 Dizzy Physical Exam Vitals: Vital Signs Temp Pulse Resp BP Pulse Ox 02/03/22 12:18 99.6 F 85 16 133/64 96 02/03/22 12:08 100.6 F H 85 16 128/67 95 02/03/22 09:31 98.7 F 95 16 138/62 100 Intake and Output 02/02/22 02/03/22 02/03/22 22:59 06:59 14:59 Intake Total 0 Balance 0 Intake: Blood Product 0 Rc As-1 Unit 0 [id number] Other: Weight 58.06 kg Results CBC & Chem 7: 02/03/22 10:14 02/03/22 10:14 Labs: Abnormal Lab Results - Last 24 Hours (Table) 02/03/22 02/03/22 02/03/22 Range/Units 10:00 10:14 10:14 RBC 2.56 L (3.80-5.40) m/uL Hgb 5.1 L* (11.4-16.0) gm/dL Hct 18.1 L* (34.0-46.0) % MCV 70.9 L (80.0-100.0) fL MCH 20.0 L (25.0-35.0) pg MCHC 28.2 L (31.0-37.0) g/dL RDW 16.5 H (11.5-15.5) % Lymphocytes # 0.8 L (1.0-4.8) k/uL APTT (22.0-30.0) sec Sodium (137-145) mmol/L BUN (7-17) mg/dL Glucose (74-99) mg/dL Total Protein (6.3-8.2) g/dL Albumin (3.5-5.0) g/dL Stool Occult Blood Positive H (Negative) Crossmatch See Detail 02/03/22 02/03/22 Range/Units 10:14 10:14 RBC (3.80-5.40) m/uL Hgb (11.4-16.0) gm/dL Hct (34.0-46.0) % MCV (80.0-100.0) fL MCH (25.0-35.0) pg MCHC (31.0-37.0) g/dL RDW (11.5-15.5) % Lymphocytes # (1.0-4.8) k/uL APTT 19.8 L (22.0-30.0) sec Sodium 131 L (137-145) mmol/L BUN 20 H (7-17) mg/dL Glucose 180 H (74-99) mg/dL Total Protein 5.5 L (6.3-8.2) g/dL Albumin 3.4 L (3.5-5.0) g/dL Stool Occult Blood (Negative) Crossmatch
[2022-02-03] MEDS: PANTOPRAZOLE 40 MG/10 ML VIAL IVP SCH ×2 (17:47→21:30)
[2022-02-03 20:19] LABS: Anisocytosis Slight; Basophils % (A) 0 %; Eosinophils # (A) 0.5 k/uL (0-0.7); Eosinophils % (A) 6 %; HCT 24.3 % (34.0-46.0); Hypochromasia Marked; Lymphocytes # (A) 1.4 k/uL (1.0-4.8); Lymphocytes % (A) 19 %; MCH 22.8 pg (25.0-35.0); MCHC 30.1 g/dL (31.0-37.0); MCV 75.8 fL (80.0-100.0); Mean Platelet Volume 7.5; Microcytosis Slight; Monocytes # (A) 0.6 k/uL (0-1.0); Monocytes % (A) 8 %; Neutrophils # (A) 4.9 k/uL (1.3-7.7); Neutrophils % (A) 65 %; Platelet Count 274 k/uL (150-450); Poikilocytosis Marked; RDW 17.5 % (11.5-15.5); WBC 7.5 k/uL (3.8-10.6)
[2022-02-03 20:30] LABS: HGB 7.3 gm/dL (11.4-16.0)
[2022-02-03] MEDS ORDERED: ACETAMINOPHEN IV (For NPO) 1,000 MG in EMPTY BAG 1 BAG IVPB PRN (21:10)
[2022-02-03] MEDS: MIRTAZAPINE 15 MG TAB PO SCH (21:30)
[2022-02-04] MEDS: LEVOTHYROXINE 125 MCG TAB PO SCH (05:59)
[2022-02-04] MEDS: PANTOPRAZOLE 40 MG/10 ML VIAL IVP SCH ×2 (08:29→20:58)
[2022-02-04] MEDS ORDERED: PEG 3350 (236 GM/BTL) + LYTES 4,000 ML BOTTLE PO ONE ×2 (09:23→15:00)
[2022-02-04 11:33] LABS: Albumin 3.5 g/dL (3.8-4.9); Albumin/Globulin Ratio 2.06 (1.60-3.17); Anion Gap 11.4 mmol/L (10.00-18.00); BUN/Creat Ratio 20.5 Ratio (12.00-20.00); Blood Urea Nitrogen 12.3 mg/dL (9.0-27.0); Calcium 8.5 mg/dL (8.7-10.3); Carbon Dioxide 21.6 mmol/L (20.0-27.5); Globulin 1.7 g/dL (1.6-3.3); Potassium 3.8 mmol/L (3.5-5.5); Total Bilirubin 0.9 mg/dL (0.30-1.20); Total Protein 5.2 g/dL (6.2-8.2)
--- NOTE | 2022-02-04 11:57 | P.CONS ---
History of Present Illness - Reason for Consult Consult date: 02/04/22 GI bleed, anemia Requesting physician: Ness Williamson - Chief Complaint Weakness, fatigue - History of Present Illness Is a pleasant 86-year-old female presented to the emergency department as directed by her PCP Dr. Williamson. She has a past medical history including hypertension, hyperlipidemia, hypothyroidism, vitamin D deficiency and constipation. Patient was experiencing increased weakness and fatigue over the last couple months. Family thought it was due to new medication. Patient had blood work done in the outpatient setting with a hemoglobin of 4.8 and was sent into the emergency department for further evaluation. She states she's been having some dark stools, no bright red blood. She denies any anticoagulation. She had her last colonoscopy done by Dr. Coelho in 2019 significant for a sessile cecal polyp status post polypectomy and left-sided diverticulosis. Patient has never had an EGD in the past. Admission she was noted to have a hemoglobin of 5.1, and she was given 2 units blood transfusion with a repeat hemoglobin yesterday evening of 7.3. Patient's daughter is at the bedside and states that her mom has actually not been feeling well and has been very weak and decreased activity since late May early June. She was diagnosed with Covid at the beginning of this year and hasn't felt well since then. She's had a decreased appetite and weight loss of 25-30 pounds since May. She currently denies any abdominal pain, nausea or vomiting. States bowel movements are regular, but in November she states she was having dark stool and let her PCP know. She states her most recent stools have been normal brown color. Denies any shortness of breath or chest pain. She does get very weak and tired easily when ambulating. Labs: WBC 7.5 hemoglobin 7.3 hematocrit 24 platelet count 274,000 INR 1.0, sodium 135 potassium 3.8 BUN 12 creatinine 0.6 total bilirubin 0.9 AST 15 ALT 16 alk phos 95 positive stool occult blood Review of Systems REVIEW OF SYSTEMS: CARDIOPULMONARY: No chest pain or shortness of breath. Gastrointestinal: No abdominal pain, epigastric pain.. No nausea or vomiting. No hematemesis, coffee-ground emesis. Patient reporting dark, black stools. GENITOURINARY: No dysuria or hematuria. MUSCULOSKELETAL: Reports normal range of motion. SKIN: No rashes. No jaundice. ENDOCRINE: No chills, fevers. No excessive weight gain or loss. No polydipsia or polyuria. PSYCHIATRIC: Unremarkable. NEUROLOGY: No change in mental status. Denies dizziness, headache. ENT: Vision unremarkable. CONSTITUTIONAL: No recent weight loss. No fever, chills, night sweats. Increased fatigue and weakness. Past Medical History Past Medical History: Cancer, Diabetes Mellitus, Hyperlipidemia, Hypertension, Osteoarthritis (OA), Thyroid Disorder, Vascular Disorder Additional Past Medical History / Comment(s): HX Thyroid cancer, varicose veins, Enlarged aorta (2.5cm). UTI LAST MO. HEMORRHOIDS; HX DIVERTICULOSIS, COVID 2021 History of Any Multi-Drug Resistant Organisms: None Reported Past Surgical History: Bladder Surgery, Cholecystectomy, Hysterectomy, Joint Replacement, Tubal Ligation Additional Past Surgical History / Comment(s): thyroid removed, total Rt hip replacement, total lt knee. COLONOSCOPY Past Anesthesia/Blood Transfusion Reactions: Postoperative Nausea & Vomiting (PONV) Past Psychological History: No Psychological Hx Reported Additional Psychological History / Comment(s): SPOUSE 6 MONTHS AGO, EMOTIONAL Smoking Status: Never smoker Past Alcohol Use History: None Reported Past Drug Use History: None Reported - Past Family History Brother(s) Family Medical History: Cancer Mother Family Medical History: Coronary Artery Disease (CAD) Additional Family Medical History / Comment(s): deafness. age 88 heart related Father Family Medical History: Pulmonary Embolus Additional Family Medical History / Comment(s): from blood clot from complications of MVA age 72. Medications and Allergies Home Medications Medication Instructions Recorded Confirmed Type Levothyroxine Sodium [Synthroid] 125 mcg PO MOTUWETHFR 06/20/14 02/03/22 History polyethylene glycoL 3350 [Miralax] 17 gm PO DAILY 05/05/17 02/03/22 History Aspirin [Adult Low Dose Aspirin EC] 81 mg PO HS 10/19/18 02/03/22 History Levothyroxine Sodium [Synthroid] 187.5 tab PO SUSA 10/19/18 02/03/22 History Atorvastatin [Lipitor] 20 mg PO HS 02/03/22 02/03/22 History Cholecalciferol [Vitamin D3 (25 50 mcg PO DAILY 02/03/22 02/03/22 History Mcg = 1000 Iu)] Mirtazapine 7.5 mg PO HS 02/03/22 02/03/22 History Multivitamins, Thera [Multivitamin 1 tab PO DAILY 02/03/22 02/03/22 History (formulary)] Allergies Allergy/AdvReac Type Severity Reaction Status Date / Time amoxicillin Allergy Itching Verified 02/03/22 12:29 tetanus and diphtheria Allergy Redness, Verified 02/03/22 12:29 toxoids swelling epinephrine [From Adrenalin] AdvReac Rapid Verified 02/03/22 12:29 Heart Rate epinephrine HCl AdvReac Rapid Verified 02/03/22 12:29 [From Adrenalin] Heart Rate ibuprofen [From Motrin] AdvReac Unknown Verified 02/03/22 12:29 morphine AdvReac Nausea & Verified 02/03/22 12:29 Vomiting naproxen [From Naprosyn] AdvReac Itching & Verified 02/03/22 12:29 Dizzy Physical Exam Vitals: Vital Signs Temp Pulse Pulse Resp BP BP Pulse Ox 02/04/22 05:00 97.9 F 86 18 169/74 97 02/03/22 20:00 98.4 F 77 18 169/73 97 02/03/22 17:46 98.7 F 02/03/22 17:18 98.7 F 72 18 146/77 95 02/03/22 16:10 98.7 F 73 15 130/69 94 L 02/03/22 15:40 98.9 F 75 16 121/65 93 L 02/03/22 15:30 98.7 F 76 16 129/62 95 02/03/22 14:56 99.9 F H 86 18 101/78 95 02/03/22 12:48 100.0 F H 82 20 132/71 95 02/03/22 12:18 99.6 F 85 16 133/64 96 02/03/22 12:08 100.6 F H 85 16 128/67 95 02/03/22 09:31 98.7 F 95 16 138/62 100 Intake and Output 02/03/22 02/04/22 02/04/22 22:59 06:59 14:59 Intake Total 510 900 Balance 510 900 Intake: Intake, IV Titration 900 Amount Sodium Chloride 0.9% 1, 900 000 ml @ 75 mls/hr IV . [id number] ONE Rx#:[id number] Blood Product 310 Rc As-1 Unit 310 [id number] Other 200 Rc As-1 Unit 200 [id number] Other: Voiding Method Toilet Weight 58.06 kg General appearance: The patient is alert, oriented, appears in no acute distress. HET: Head is normocephalic and atraumatic. Conjunctiva pink. Sclera anicteric. Neck: Supple without lymphadenopathy. Trachea midline. Heart: S1 S2. Regular rate and rhythm. Lungs: Clear to auscultation. Abdomen: Soft, nontender, nondistended with bowel sounds. No guarding or rigidity. Skin: No rashes. No jaundice. Extremities: Normal skin color and turgor. No pedal edema. Neurological: No focal deficits. Alert and oriented x3. Results CBC & Chem 7: 02/03/22 19:40 02/04/22 07:38 Labs: Abnormal Lab Results - Last 24 Hours (Table) 02/03/22 02/03/22 02/03/22 Range/Units 10:00 10:14 10:14 RBC 2.56 L (3.80-5.40) m/uL Hgb 5.1 L* (11.4-16.0) gm/dL Hct 18.1 L* (34.0-46.0) % MCV 70.9 L (80.0-100.0) fL MCH 20.0 L (25.0-35.0) pg MCHC 28.2 L (31.0-37.0) g/dL RDW 16.5 H (11.5-15.5) % Lymphocytes # 0.8 L (1.0-4.8) k/uL APTT (22.0-30.0) sec Sodium (137-145) mmol/L BUN (7-17) mg/dL Glucose (74-99) mg/dL Total Protein (6.3-8.2) g/dL Albumin (3.5-5.0) g/dL Stool Occult Blood Positive H (Negative) Crossmatch See Detail 02/03/22 02/03/22 02/03/22 Range/Units 10:14 10:14 19:40 RBC 3.20 L (3.80-5.40) m/uL Hgb 7.3 L D (11.4-16.0) gm/dL Hct 24.3 L (34.0-46.0) % MCV 75.8 L (80.0-100.0) fL MCH 22.8 L (25.0-35.0) pg MCHC 30.1 L (31.0-37.0) g/dL RDW 17.5 H (11.5-15.5) % Lymphocytes # (1.0-4.8) k/uL APTT 19.8 L (22.0-30.0) sec Sodium 131 L (137-145) mmol/L BUN 20 H (7-17) mg/dL Glucose 180 H (74-99) mg/dL Total Protein 5.5 L (6.3-8.2) g/dL Albumin 3.4 L (3.5-5.0) g/dL Stool Occult Blood (Negative) Crossmatch Assessment and Plan (1) GI bleed Narrative/Plan: The 6-year-old female who was sent in from her PCP for low hemoglobin and weakness. Patient had a hemoglobin of 4.8 in the outpatient setting and 5.1 on admission. She was given 2 units of PRBC transfusion with the repeat hemoglobin is 7.3 yesterday evening. Patient has been reporting dark stools since at least November. Last colonoscopy October 2018 which was significant for cecal polyp and diverticulosis. No previous history of EGD. Denies any anticoagulation or regular NSAID use. She does take a low-dose baby aspirin daily. Otherwise patient uses Tylenol for pain. Denies any previous history of GI bleed. Unclear etiology at this time, will order iron studies pretransfusion. Possible etiologies include peptic ulcer disease, AVM, esophagitis, or other etiologies. Will also consider lower GI source of blood loss is a possibility with previous polypectomy with tubular adenoma. Will prep this afternoon for EGD and colonoscopy tomorrow. Current Visit: Yes Status: Acute Code(s): K92.2 - GASTROINTESTINAL HEMORRHAGE, UNSPECIFIED SNOMED Code(s): 76633941 (2) Microcytic hypochromic anemia Current Visit: Yes Status: Acute Code(s): D50.9 - IRON DEFICIENCY ANEMIA, UNSPECIFIED SNOMED Code(s): 90762184 Plan: 1. Continue symptomatic supportive care 2. Clear liquid diet, nothing by mouth after midnight 3. Daily CBC, transfuse for hemoglobin less than 7 4. Avoid NSAIDs, anticoagulation 5. Bowel prep this afternoon 6. Plan for EGD/colonoscopy tomorrow morning Thank you for this consultation, we will continue to follow. Dr. Alexandrea Coelho I agree with the dictator's note, documented as a scribe by Rita Lipscomb.
[2022-02-04 12:35] LABS: HCT 24.6 % (37.2-46.3); HGB 7.6 g/dL (12.0-15.0); MCH 22.8 pg (27.0-32.0); MCHC 30.9 g/dL (32.0-37.0); MCV 73.9 fL (80.0-97.0); Mean Platelet Volume 10.8 fL (9.5-12.2); NRBC Per 100 WBC 0 /100 WBCS (0.0-0.0); Platelet Count 310 X 10*3/uL (140-440); RBC 3.33 X 10*6/uL (4.10-5.20); RDW 17.4 % (11.5-14.5); WBC 8.19 X 10*3/uL (4.50-10.00)
[2022-02-04] MEDS ORDERED: ACETAMINOPHEN TAB 325 MG TAB PO PRN (13:17)
--- NOTE | 2022-02-04 14:07 | P.PN ---
Subjective Progress Note Date: 02/04/22 HISTORY OF PRESENT ILLNESS This is an 86-year-old female with past medical history of hypertension, hyperlipidemia, hypothyroidism, vitamin D deficiency, constipation. Patient complains of weakness that has been ongoing for some time. Her daughter thought it was related to Remeron. Patient has dark stools with no bloody stools. She feels a minimal epigastric discomfort after she eats or when she is hungry . She had a colonoscopy done [address] Coelho which revealed 78 millimeter cecal polyp and scattered left-sided diverticulosis. Patient has not had an EGD done in the past. Patient was in the office yesterday and lab work was obtained, hemoglobin came back at 4.8 and patient was contacted this morning and instructed to go to the emergency center. Patient presented to [facility] [place]. She was found to be afebrile, heart rate 95, blood pressure 138/62, pulse ox 100% on room air. WBC 7.0, hemoglobin 5.1, platelet count 368. INR 1.0. Sodium 131 otherwise electrolytes are normal. BUN 20 creatinine 0.57. Blood sugar 180. Liver fun ction tests are normal. Calcium 8.6. Troponin negative. Stool for occult blood positive Patient was provided half liter of IV fluids, started on transfusion of 2 units of packed RBCs. Patient is seen today in the emergency center waiting for a bed on the [facility] floor. Her vital signs have been stable. Consult placed with Dr. Mainor Coelho 02/04: Patient is seen today on the [facility] floor. She has been transfused 2 units of packed RBCs and repeat hemoglobin last evening was 7.3. Hemoglobin morning is 7.6. She is on a clear liquid diet and tolerating and preparing to start bowel prep. She is afebrile, heart rate 86, blood pressure 169/74, pulse ox 97% on room air. Patient has been seen by GI and scheduled for EGD and colonoscopy on Tuesday. Patient's daughter is at bedside. REVIEW OF SYSTEMS Constitutional: No fever, no chills, no night sweats. Reports weight change. Reports weakness, reports fatigue, reports daytime sleepiness. EENT: No headache. No blurred vision or double vision, no loss of vision. No loss of Hearing, no ringing in the ears, no dizziness. No nasal drainage or congestion. No epistaxis. No sore throat. Lungs: No shortness of breath, cough, no sputum production. No wheezing. Cardiovascular: No chest pain, no lower extremity edema. No palpitations. No paroxysmal nocturnal dyspnea. No orthopnea. No lightheadedness or dizziness. No syncopal episodes. Abdominal: Reports occasional abdominal pain. No nausea, vomiting. No diarrhea. No constipation. Reports bloody or tarry stools. Reports loss of appetite. Genitourinary: No dysuria, increased frequency, urgency. No urinary retention. Musculoskeletal: No myalgias. Reports generalized muscle weakness, no gait dysfunction, no frequent falls. No back pain. No neck pain. Integumentary: No wounds, no lesions. No rash or pruritus. No unusual bruising. No change in hair or nails. Neurologic: No aphasia. No facial droop. No change in mentation. No head injury. No headache. No paralysis. No paresthesia. Psychiatric: No depression. No anxiety. No mood swings. Endocrine: No abnormal blood sugars. No weight change. No excessive sweating or thirst. No cold intolerance. PHYSICAL EXAMINATION Gen: This is a frail-appearing 86-year-old female. She is resting in bed and appears to be in no acute distress. The patient's daughter is at bedside. HEENT: Head is atraumatic, normocephalic. Pupils equal, round. Sclerae is anict [place]. NECK: Supple. No JVD. No lymphadenopathy. No thyromegaly. LUNGS: Clear to auscultation. No wheezes or rhonchi. No intercostal retractions. HEART: First heart sound is depressed, second heart sound is normal, 2/6 systolic ejection murmur at the left sternal border, no S3 or S4. ABDOMEN: Soft. Bowel sounds are present. No masses. Mild epigastric tenderness with fullness. EXTREMITIES: No pedal edema. No calf tenderness. Dorsalis pedis palpable bilaterally. NEUROLOGICAL: Patient is awake, alert and oriented x3. Cranial nerves 2 through 12 are grossly intact. ASSESSMENT AND PLAN 1. Acute GI bleed most likely secondary to an upper GI source. Consult with Dr. Coelho with him for EGD and colonoscopy on Tuesday morning, continue patient on clear liquid diet, continue patient on IV fluids 0.9 normal saline at 50 mL per hour, patient continued on Protonix 40 mg IV push twice daily. 2. Acute blood loss anemia. Patient has been transfused 2 units of packed RB Cs, continue to monitor CBC closely and transfuse as indicated. 3. Hypertension. Monitor blood pressure. 4. Hyperlipidemia. Hold atorvastatin. 5. Hypothyroidism. Continue levothyroxine at home dose. 6. Vitamin D deficiency. Hold vitamins for now. 7. GI prophylaxis. Protonix. 8. DVT prophylaxis. SCDs and MARTIN hose. DISCHARGE PLAN To be determined. PT and OT will be added once hemoglobin is stable. Impression and plan of care have been directed as dictated by the signing physician. Traci Crow nurse practitioner acting as scribe for signing physician. Objective - Vital Signs Vital signs: Vital Signs Temp 97.9 F 02/04/22 05:00 Pulse 86 02/04/22 05:00 Resp 18 02/04/22 05:00 BP 169/74 02/04/22 05:00 Pulse Ox 97 02/04/22 05:00 FiO2 Intake & Output 02/03/22 02/04/22 02/04/22 18:59 06:59 18:59 Intake Total 820 900 Balance 820 900 Weight 58.06 kg 58.06 kg Intake: Intake, IV Titration 900 Amount Sodium Chloride 0.9% 1, 900 000 ml @ 75 mls/hr IV . [id number] ONE Rx#:[id number] Blood Product 620 Rc As-1 Unit 310 [id number] Rc As-1 Unit 310 [id number] Other 200 Rc As-1 Unit 200 [id number] Other: Voiding Method Toilet - Labs CBC & Chem 7: 02/04/22 07:38 02/04/22 07:38 Labs: Abnormal Lab Results - Last 24 Hours (Table) 02/03/22 02/03/22 02/03/22 Range/Units 10:00 10:14 10:14 RBC 2.56 L (3.80-5.40) m/uL Hgb 5.1 L* (11.4-16.0) gm/dL Hct 18.1 L* (34.0-46.0) % MCV 70.9 L (80.0-100.0) fL MCH 20.0 L (25.0-35.0) pg MCHC 28.2 L (31.0-37.0) g/dL RDW 16.5 H (11.5-15.5) % Lymphocytes # 0.8 L (1.0-4.8) k/uL APTT (22.0-30.0) sec Sodium (137-145) mmol/L BUN (7-17) mg/dL Glucose (74-99) mg/dL Total Protein (6.3-8.2) g/dL Albumin (3.5-5.0) g/dL Stool Occult Blood Positive H (Negative) Crossmatch See Detail 02/03/22 02/03/22 02/03/22 Range/Units 10:14 10:14 19:40 RBC 3.20 L (3.80-5.40) m/uL Hgb 7.3 L D (11.4-16.0) gm/dL Hct 24.3 L (34.0-46.0) % MCV 75.8 L (80.0-100.0) fL MCH 22.8 L (25.0-35.0) pg MCHC 30.1 L (31.0-37.0) g/dL RDW 17.5 H (11.5-15.5) % Lymphocytes # (1.0-4.8) k/uL APTT 19.8 L (22.0-30.0) sec Sodium 131 L (137-145) mmol/L BUN 20 H (7-17) mg/dL Glucose 180 H (74-99) mg/dL Total Protein 5.5 L (6.3-8.2) g/dL Albumin 3.4 L (3.5-5.0) g/dL Stool Occult Blood (Negative) Crossmatch
[2022-02-04] MEDS: SODIUM CHLORIDE 0.9% 1,000 ML IV SCH ×2 (14:18→20:59)
[2022-02-04 16:49] LABS: % Iron Saturation 2.57 (12.00-45.00); Ferritin 13.8 ng/mL (10.0-291.0)
[2022-02-04] MEDS: MIRTAZAPINE 15 MG TAB PO SCH (20:59)
[2022-02-05] MEDS ORDERED: PROPOFOL 10 MG/ML 20 ML VIAL IV ONE (06:29)
[2022-02-05] MEDS ORDERED: LIDOCAINE 2% INJ 20 MG/ML (2 ML VIAL) ONE (06:29)
[2022-02-05] MEDS ORDERED: IV FLUID CONTINUATION 1,000 ML IV ONE ×2 (06:33)
--- NOTE | 2022-02-05 07:27 | P.PCN ---
Date of Procedure: 02/05/22 Procedure(s) Performed: Brief history: Patient is a pleasant 86-year-old white female admitted hospital with severe symptomatic anemia and hemoglobin of 4.8 g/dL. She is been having intermittent dark colored stools. Denies any abdominal pain. Her last colonoscopy was 3 years ago. She is scheduled for an upper endoscopy as well as colonoscopy to evaluate further. Procedure performed: Esophagogastroduodenoscopy biopsy Colonoscopy snare polypectomy Preoperative diagnosis: Severe symptomatic iron deficiency anemia and hemoglobin of 4.8 g/dL Anesthesia: MAC Procedure: After informed consent was obtained from the patient was brought into the endoscopy unit and IV sedation was administered by anesthesia under continuous monitoring. Initially upper endoscopy was done. The Olympus GF 160 video endoscope was inserted inserted into the mouth and esophagus intubated without any difficulty and was gradually advanced into the stomach and duodenum and carefully examined. Along the duodenal sweep there was a slightly raised flat ulcerated area with friable mucosa extending about 3-4 cm along the medial wall suspicious for neoplasm. This area could not be adequately visualized with the forward viewing scope. Hence I used the side-viewing duodenoscope which was advanced into the duodenum but despite multiple attempts this particular area could not be intubated adequately visualized because of deformity of the duodenal bulb. Multiple biopsies were done to rule out neoplasia. The scope was then withdrawn into the stomach adequately insufflated with air and upon careful examination the antrum and body, cardia and fundus appeared normal. The scope was then withdrawn into the esophagus. The GE junction was located at 37 cm to the incisors. small hiatal hernia. It appeared regular with no erythema erosions or ulcerations. Rest of the esophagus appeared normal. Patient tolerated the procedure well. At this time the patient continued to remain sedation. Initial digital rectal examination was normal. Olympus CF 160 video colonoscope was then inserted into the rectum and and advanced beyond the sigmoid:. The scope was removed and a. Colonoscopy was in inserted in the rectum and gradually gradually advanced to the cecum with moderate to severe difficulty. Careful examination was performed as the scope was gradually being withdrawn. The prep wa fair. In the base of cecum there was a 5 mm polyp removed by snare polypectomy. Rest of the cecum, ascending colon, transverse colon, descending colon, sigmoid colon and rectum appeared normal. moderate sigmoid diverticulosis seen. Retroflexion was performed in the rectum and no lesions were noted. Patient tolerated the procedure well. Impression: 1. Upper endoscopy revealed a flat somewhat ulcerated friable lesion along the duodenal sweep extending approximately 3-4 cm status post multiple biopsies to rule out neoplasia small hiatal hernia 2. Colonoscopy revealed 5 mm cecal polyp status post polypectomy and scattered sigmoid diverticulosis Recommendations: Findings of this examination were discussed with the patient as well as her family. She was advised to follow with the biopsy results. In the meantime we'll obtain CT of abdomen and pelvis to rule out pancreatic pathology and other tumor markers.. Start on regular diet. Monitor labs daily.
[2022-02-05] MEDS: IOPAMIDOL CONTRAST (ORAL USE) VIAL PO PRN ×2 (08:47→09:47)
[2022-02-05] MEDS: SODIUM CHLORIDE 0.9% 1,000 ML IV SCH (08:48)
[2022-02-05 08:50] LABS: Anisocytosis Slight; HCT 26.1 % (34.0-46.0); HGB 8.1 gm/dL (11.4-16.0); Hypochromasia Marked; MCHC 30.9 g/dL (31.0-37.0); MCV 74.5 fL (80.0-100.0); Microcytosis Moderate; Platelet Count 305 k/uL (150-450); Poikilocytosis Marked; RBC 3.51 m/uL (3.80-5.40); RDW 18.3 % (11.5-15.5); WBC 9.2 k/uL (3.8-10.6)
--- NOTE | 2022-02-05 11:04 | CT ---
EXAMINATION TYPE: CT abdomen pelvis w con CT DLP: 449.9 mGycm, Automated exposure control for dose reduction was used. DATE OF EXAM: 02/05/2022 10:40 AM COMPARISON: CT abdomen pelvis most recent from 09/15/2015 CLINICAL INDICATION:Female, 86 years old with history of duodenal ulcer suspicious for neoplasm; Duod enal ulcer suspicious for neoplasm. TECHNIQUE: Axial CT of the abdomen and pelvis. Sagittal and coronal reformats were created on a [employer] workstation. Contrast used:80ml mL of Isovue 300 with IV Contrast, Oral contrast used: with Oral Contrast FINDINGS: LOWER CHEST: Unremarkable ABDOMEN LIVER: Scattered indeterminate lesions are seen seen throughout the liver which are hypointense the l argest measuring up to 10 mm right hepatic lobe measuring 41 cm. GALLBLADDER AND BILE DUCTS: Extrahepatic biliary dilation along with intrahepatic biliary dilation. T he gallbladder surgically absent. PANCREAS: Soft tissue mass centered around the pancreatic head is present measuring up to 6.5 x 5.7 x 4.5 cm there is associated upstream dilation of the main pancreatic duct with atrophy of the pancrea s. SPLEEN: Unremarkable. ADRENAL GLANDS: Unremarkable. KIDNEYS AND URETERS: No evidence of hydronephrosis or renal calculus. Subcentimeter probable renal cy sts on the right. PELVIS BLADDER: Unremarkable REPRODUCTIVE: Unremarkable. ABDOMEN & PELVIS STOMACH AND BOWEL: Scattered clonic diverticula present. No evidence of bowel obstruction. PERITONEUM: No evidence of pneumoperitoneum or free fluid. VASCULATURE: No evidence of aortic aneurysm. Hazy soft tissue surrounds the superior mesenteric arter y as it courses along the lateral left margin of the mass. MUSCULOSKELETAL: No acute osseous abnormalities, right hip arthroplasty changes which appear intact. Mild multilevel disc degeneration changes are seen throughout the spine. Mild scoliosis changes of th e spine. LYMPH NODES: Probable enlarged lymph node series 3 image 28 measuring 13 mm in short axis. SOFT TISSUE/ABDOMINAL WALL: Unremarkable IMPRESSION: 1. Soft tissue mass centered at the pancreatic head which results in intrahepatic and extra hepatic biliary dilation as well as main pancreatic duct dilation. Further evaluation with PET/CTs recommende d. 2. Indeterminate hepatic lesions could represent metastatic disease from #1. Attention on PET/CT. 3. 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
[2022-02-05] MEDS: LEVOTHYROXINE 125 MCG TAB PO SCH (12:46)
[2022-02-05] MEDS: PANTOPRAZOLE 40 MG/10 ML VIAL IVP SCH (13:55)
[2022-02-05 14:48] VITALS: BP 166/89; PULSE 95; RESP 18; TEMP 98.6
--- NOTE | 2022-02-05 15:03 | P.DS ---
Providers Date of admission: 02/03/22 11:53 Expected date of discharge: 02/05/22 Attending physician: Ness Williamson Consults: 02/03/22 11:53 Consult Physician Urgent Consulting Provider: Nayla Coelho Consult Reason/Comments: GI bleed Do you want consulting provider notified?: Yes Primary care physician: Ness Williamson Hospital Course: HISTORY OF PRESENT ILLNESS This is an 86-year-old female with past medical history of hypertension, hyperlipidemia, hypothyroidism, vitamin D deficiency, constipation. Patient complains of weakness that has been ongoing for some time. Her daughter thought it was related to Remeron. Patient has dark stools with no bloody stools. She feels a minimal epigastric discomfort after she eats or when she is hungry . She had a colonoscopy done [address] Coelho which revealed 78 millimeter cecal polyp and scattered left-sided diverticulosis. Patient has not had an EGD done in the past. Patient was in the office yesterday and lab work was obtained, hemoglobin came back at 4.8 and patient was contacted this morning and instructed to go to the emergency center. Patient presented to [facility]. She was found to be afebrile, heart rate 95, blood pressure 138/62, pulse ox 100% on room air. WBC 7.0, hemoglobin 5.1, platelet count 368. INR 1.0. Sodium 131 otherwise electrolytes are normal. BUN 20 creatinine 0.57. Blood sugar 180. Liver function tests are normal. Calcium 8.6. Troponin negative. Stool for occult blood positive Patient was provided half liter of IV fluids, started on transfusion of 2 units of packed RBCs. Patient is seen today in the emergency center waiting for a bed on the [facility] floor. Her vital signs have been stable. Consult placed with Dr. Mainor Coelho 02/04: Patient is seen today on the [facility] floor. She has been transfused 2 units of packed RBCs and repeat hemoglobin last evening was 7.3. Hemoglobin this morning is 7.6. She is on a clear liquid diet and tolerating and preparing to start bowel prep. She is afebrile, heart rate 86, blood pressure 169/74, pulse ox 97% on room air. Patient has been seen by GI and scheduled for EGD and colonoscopy on Tuesday. Patient's daughter is at bedside. 02/05: This morning, patient underwent EGD and colonoscopy. EGD revealed flat somewhat ulcerated friable lesion along the duodenal sweep extending a pproximately 3-4 cm status post multiple biopsies to rule out neoplasia, hiatal hernia. Colonoscopy revealed a 5 mm cecal polyp status post polypectomy and scattered sigmoid diverticulosis. A CAT scan of the abdomen and pelvis to rule out pancreatic pathology and other tumor markers been ordered, regular diet maybe started. Patient has been cleared for discharge by Dr. Richardson with planned follow-up in the office on Tuesday for biopsy results. Patient states she had some nausea after drinking contrast. Patient and family would like her to go home today. Patient will be discharged home today in stable condition. CAT scan of the abdomen and pelvis with contrast revealed soft tissue mass centered at the pancreatic head which results in intrahepatic and extrahepatic biliary dilation as well as main pancreatic duct dilation. Further evaluation with PET computed tomography scan recommended. Indeterminate hepatic lesions could represent metastatic disease from #1. Kaylin hepatis enlarged lymph node likely metastatic disease. CEA 133 CA 199 less than 2 DISCHARGE DIAGNOSES 1. Acute GI bleed most likely secondary to duodenal lesion, suspicious for pancreatic malignancy. 2. Acute blood loss anemia. Patient has been transfused 2 units of packed RBCs. 3. Hypertension. 4. Hyperlipidemia. 5. Hypothyroidism. 6. Vitamin D deficiency. DISCHARGE PLAN Return home. Greater than 35 minutes was utilized and coordinating patient's discharge. Impression and plan of care have been directed as dictated by the signing physician. Traci Crow nurse practitioner acting as scribe for signing physician. Patient Condition at Discharge: Good Plan - Discharge Summary Discharge Rx Participant: Yes New Discharge Prescriptions: New lisinopriL 2.5 mg PO DAILY #1 tablet Continue Levothyroxine Sodium [Synthroid] 125 mcg PO MOTUWETHFR polyethylene glycoL 3350 [Miralax] 17 gm PO DAILY Levothyroxine Sodium [Synthroid] 187.5 tab PO SUSA Aspirin [Adult Low Dose Aspirin EC] 81 mg PO HS Cholecalciferol [Vitamin D3 (25 Mcg = 1000 Iu)] 50 mcg PO DAILY Atorvastatin [Lipitor] 20 mg PO HS Mirtazapine 7.5 mg PO HS Multivitamins, Thera [Multivitamin (formulary)] 1 tab PO DAILY Discharge Medication List Levothyroxine Sodium [Synthroid] 125 mcg PO MOTUWETHFR 06/20/14 [History] polyethylene glycoL 3350 [Miralax] 17 gm PO DAILY 05/05/17 [History] Aspirin [Adult Low Dose Aspirin EC] 81 mg PO HS 10/19/18 [History] Levothyroxine Sodium [Synthroid] 187.5 tab PO SUSA 10/19/18 [History] Atorvastatin [Lipitor] 20 mg PO HS 02/03/22 [History] Cholecalciferol [Vitamin D3 (25 Mcg = 1000 Iu)] 50 mcg PO DAILY 02/03/22 [History] Mirtazapine 7.5 mg PO HS 02/03/22 [History] Multivitamins, Thera [Multivitamin (formulary)] 1 tab PO DAILY 02/03/22 [History] lisinopriL 2.5 mg PO DAILY #1 tablet 02/05/22 [Rx] Follow up Appointment(s)/Referral(s): Nayla Coelho MD [STAFF PHYSICIAN] - 02/09/22 Ness Williamson MD [Primary Care Provider] - 02/09/22 Discharge Disposition: HOME SELF-CARE
--- NOTE | 2022-02-05 15:19 | P.PN ---
Progress Note - Text Progress Note Date: 02/05/22 CT abdomen and pelvis ordered today following EGD and colonoscopy results. Upper endoscopy revealed friable ulcer concerning for possible neoplasia. CT abdomen and pelvis reported soft tissue mass centered in the pancreatic head which results in intrahepatic and extrahepatic biliary dilation as well as main pancreatic duct dilation. Further evaluation with PET/CTs recommended. Indeterminant hepatic lesions could represent metastatic disease from #1. Attention on PET/CT. Kaylin hepatitis enlarged lymph node likely metastatic disease from #1. CEA and CA-19-9 ordered. CEA 133, CA-19-9 less than 2.0. Recommend outpatient follow-up for biopsy, and further recommendations and referrals. Thank you for this consultation, patient is cleared for discharge from gastroenterology. Dr. Alexandrea Coelho I agree with the dictator's note, documented as a scribe by Rita Lipscomb.
[2022-02-06] MEDS ORDERED: LEVOTHYROXINE 125 MCG TAB PO SCH (06:30)
--- NOTE | 2022-02-06 13:48 | CDI ---
Documentation Clarification Form Date: 02/06/2022 01:44 PM From: Paris Azar Phone: Admit Date: 02/03/2022 11:53:00 AM Patient Name: Cassidy Goff Visit Number: [id number] Discharge Date: 02/05/2022 06:00:00 PM ATTENTION: The Clinical Documentation Specialists (CDI) and [facility] Coding Staff appreciate your assistance in clarifying documentation. Please respond to the clarification below the line at the bottom and electronically sign. The CDI & [facility] Coding staff will review the response and follow-up if needed. Please note: Queries are made part of the Legal Health Record. If you have any questions, please contact the author of this message via ITS. Dr. Ness Williamson There is documentation of Pt having decreased appetite and weight loss andfrail-appearing. Additional clarification is requested. History/Risk Factors: 86yo F, GIB w symptomatic ABLA, Hx COVID, duodenal cecum polyp, mass of pancreatic head intrahepatic and extra hepatic biliary dilation and duct dilation, DMII, HTN, sigmoid diverticulosis Clinical Indicators: Hx Covidat the beginning of this year and hasn't felt well since then. Current BMI: 21.3 Weight Loss: 25-30 pounds since May. Treatment: EGD wbiopsy, Colonoscopy snare polypectomy- Path pending Can you please if there is an additional diagnosis that is clinically appropriate for this patient? [ ] Underweight [ ] Mild Protein-Calorie Malnutrition [X ] Moderate Protein-Calorie Malnutrition [ ] Severe Protein-Calorie Malnutrition [ ] Other condition, please specify [ ] Unable to Determine (Template Last Revised: August 2020) MTDD
== END 2022-02-05 18:00 | disposition home or self-care (01) | DRG 378 ==
LOC: EC 09:23 → 4SSUR 11:53 → 5NMEDONC 18:06
PROVIDERS: ADMIT Internal Medicine; ATTEND Internal Medicine
PROC: 0DB98ZZ Excision of Duodenum, Via Natural or Artificial Opening Endoscopic (ICD-10-PCS; principal; 2022-02-03)
PROC: 0DBH8ZX Excision of Cecum, Via Natural or Artificial Opening Endoscopic, Diagnostic (ICD-10-PCS; 2022-02-03)
PROC: 30233N1 Transfusion of Nonautologous Red Blood Cells into Peripheral Vein, Percutaneous Approach (ICD-10-PCS; 2022-02-03)
DX: K26.4 Chronic or unspecified duodenal ulcer with hemorrhage (principal); C25.3 Malignant neoplasm of pancreatic duct; D62 Acute posthemorrhagic anemia; E44.0 Moderate protein-calorie malnutrition; K75.89 Other specified inflammatory liver diseases; E11.9 Type 2 diabetes mellitus without complications; I10 Essential (primary) hypertension; E89.0 Postprocedural hypothyroidism; I77.810 Thoracic aortic ectasia; R63.4 Abnormal weight loss; K86.89 Other specified diseases of pancreas; R54 Age-related physical debility; K44.9 Diaphragmatic hernia without obstruction or gangrene; E55.9 Vitamin D deficiency, unspecified; K31.89 Other diseases of stomach and duodenum; K63.5 Polyp of colon; K57.30 Diverticulosis of large intestine without perforation or abscess without bleeding; E78.5 Hyperlipidemia, unspecified; M19.90 Unspecified osteoarthritis, unspecified site; I83.90 Asymptomatic varicose veins of unspecified lower extremity; K64.9 Unspecified hemorrhoids; K59.00 Constipation, unspecified; Z96.641 Presence of right artificial hip joint; Z96.652 Presence of left artificial knee joint; Z86.010 Personal history of colon polyps; Z98.890 Other specified postprocedural states; Z79.890 Hormone replacement therapy; Z79.899 Other long term (current) drug therapy; Z79.82 Long term (current) use of aspirin; Z88.0 Allergy status to penicillin; Z88.6 Allergy status to analgesic agent; Z88.7 Allergy status to serum and vaccine; Z88.8 Allergy status to other drugs, medicaments and biological substances; Z88.5 Allergy status to narcotic agent; Z85.850 Personal history of malignant neoplasm of thyroid; Z87.440 Personal history of urinary (tract) infections; Z90.49 Acquired absence of other specified parts of digestive tract; Z90.710 Acquired absence of both cervix and uterus; Z80.9 Family history of malignant neoplasm, unspecified; Z82.49 Family history of ischemic heart disease and other diseases of the circulatory system; Z82.2 Family history of deafness and hearing loss; Z86.16 Personal history of COVID-19; Z82.61 Family history of arthritis; Z68.21 Body mass index [BMI] 21.0-21.9, adult
CPT/HCPCS: 36415; 43239; 45385; 74177; 80053; 82272; 82378; 82728; 83540; 83550; 83735; 84484; 85025; 85027; 85610; 85730; 86301; 86850; 86900; 86901; 86920; 88305; 96361; 96374; 99291

== ENCOUNTER → 2022-03-10 | Outpatient (CLI) | payer MEDICARE ==
[2022-03-10 09:24] LABS: Anisocytosis Slight; Basophils # (A) 0.1 k/uL (0-0.2); Basophils % (A) 1 %; Eosinophils # (A) 0.4 k/uL (0-0.7); Eosinophils % (A) 3 %; HCT 26.6 % (34.0-46.0); HGB 7.7 gm/dL (11.4-16.0); Hypochromasia Marked; Lymphocytes # (A) 1.3 k/uL (1.0-4.8); Lymphocytes % (A) 11 %; MCH 22.9 pg (25.0-35.0); Mean Platelet Volume 7.9; Microcytosis Slight; Monocytes # (A) 0.6 k/uL (0-1.0); Monocytes % (A) 5 %; Neutrophils # (A) 9.3 k/uL (1.3-7.7); Neutrophils % (A) 79 %; Platelet Count 380 k/uL (150-450); Poikilocytosis Moderate; RBC 3.37 m/uL (3.80-5.40); RDW 17.5 % (11.5-15.5); WBC 11.8 k/uL (3.8-10.6)
== END | disposition home or self-care (01) ==
LOC: LABWHC1 08:52
PROVIDERS: ATTEND Internal Medicine
DX: D64.9 Anemia, unspecified (principal)
CPT/HCPCS: 36415; 85025

== ENCOUNTER 2022-04-08 11:28 | Emergency (ER) | payer MEDICARE ==
--- NOTE | 2022-04-08 13:07 | XR ---
EXAMINATION TYPE: AP view pelvis and 2 views right hip DATE OF EXAM: 04/08/2022 COMPARISON: 06/26/2020 HISTORY: 86-year-old female with pain after fall. Total arthroplasty 6 years ago. FINDINGS: Mild axial joint space narrowing left hip. Patient is status post right hip total arthroplasty. Aceta bular cup and femoral stem components of the prosthesis appear well seated without periprosthetic fra cture. Alignment anatomic. No acute fractures seen. SI joints appear symmetric and intact as is the s ymphysis. Degenerative change lower lumbar spine. IMPRESSION: Status post regular total arthroplasty. No evident complication or acute osseous abnormality seen.
[2022-04-08] MEDS ORDERED: SODIUM CHLORIDE 0.9% 1,000 ML IV ONE (13:11)
[2022-04-08 13:36] LABS: ALT 233 U/L (4-34); AST 380 U/L (14-36); African American GFR (CKD) >90 (>60 ml/min/1.73 sqM); Albumin 3.1 g/dL (3.5-5.0); Anion Gap 13 mmol/L; Blood Urea Nitrogen 16 mg/dL (7-17); Calcium 8.2 mg/dL (8.4-10.2); Carbon Dioxide 19 mmol/L (22-30); Chloride 92 mmol/L (98-107); Glucose 129 mg/dL (74-99); Non-African American GFR(CKD) 89 (>60 ml/min/1.73 sqM); Sodium 124 mmol/L (137-145); Total Bilirubin 5.5 mg/dL (0.2-1.3); Total Protein 5.5 g/dL (6.3-8.2)
[2022-04-08 13:47] LABS: Alkaline Phosphatase 2000 U/L (38-126); Potassium 5.6 mmol/L (3.5-5.1)
[2022-04-08] MEDS ORDERED: ACETAMINOPHEN TAB 325 MG TAB PO STA ×2 (13:57→18:16)
[2022-04-08 14:12] LABS: Anisocytosis Moderate; Basophils # (A) 0.1 k/uL (0-0.2); Basophils % (A) 1 %; Eosinophils # (A) 0.1 k/uL (0-0.7); Eosinophils % (A) 1 %; HCT 31.4 % (34.0-46.0); HGB 10.2 gm/dL (11.4-16.0); Hypochromasia Moderate; Lymphocytes % (A) 12 %; MCH 30.1 pg (25.0-35.0); MCHC 32.4 g/dL (31.0-37.0); Monocytes # (A) 0.4 k/uL (0-1.0); Monocytes % (A) 5 %; Neutrophils # (A) 6.5 k/uL (1.3-7.7); Neutrophils % (A) 80 %; Platelet Count 302 k/uL (150-450); RBC 3.38 m/uL (3.80-5.40); RDW 20.9 % (11.5-15.5); WBC 8.2 k/uL (3.8-10.6)
[2022-04-08 14:24] LABS: MCV 92.8 fL (80.0-100.0)
--- NOTE | 2022-04-08 14:49 | CT ---
EXAMINATION TYPE: CT hip RT wo con DATE OF EXAM: 04/08/2022 COMPARISON: Radiograph same day and CT 02/05/2022 HISTORY: 86-year-old female Right hip pain, unable to bear weight TECHNIQUE: Contiguous axial scanning of the right hip without IV contrast. Coronal and sagittal recon structions performed. CT DLP: 333.5 mGycm Automated exposure control for dose reduction was used. FINDINGS: There is a nondisplaced segmental fracture of the right inferior pubic ramus. Subtle [address] ep-off along the posterior wall of the acetabulum on axial image 16 and 22. No additional acute fracture is seen allowing for limitations from metal artifact from the patient's right hip arthroplasty. The distal stem of the femoral component is excluded from view. Soft tissue swelling is noted about the right hip. There is some nonspecific presacral edema. Sigmoid atherosclerosis. IMPRESSION: 1. NONDISPLACED SEGMENTAL FRACTURE RIGHT INFERIOR PUBIC RAMUS. 2. SUBTLE NONDISPLACED FRACTURE POSTERIOR ACETABULUM ONLY SEEN DUE TO A SUBTLE 1 MM CORTICAL STEP-OFF ALONG THE POSTERIOR WALL (AXIAL IMAGES 16 AND 22). 3. THE DISTAL STEM OF THE PATIENT'S FEMORAL COMPONENT IS EXCLUDED FROM VIEW. THE ACETABULAR CUP AND V ISUALIZED FEMORAL COMPONENT OTHERWISE APPEAR WELL SEATED.
--- NOTE | 2022-04-08 16:24 | ED ---
General Adult HPI - General Chief complaint: Fall Stated complaint: Fall, hip pain Time Seen by Provider: 04/08/22 11:42 Source: patient, family, RN notes reviewed Mode of arrival: wheelchair Limitations: no limitations - History of Present Illness Initial comments: This a 86-year-old female presents emergency Department for evaluation of right hip pain. Patient reportedly had a fall yesterday. Patient states she just got out states that she became very weak and her legs in fell the ground. Patient onto her right side. Patient is brought in by family for evaluation after discussing case with her oncologist. Patient has pancreatic cancer had recent radiation therapy was scheduled to start chemotherapy today patient was sent in to rule out fracture. Upon evaluation of the patient found to be jaundice which is new per family. They do admit that she is very weak, decreased oral intake, decreased eating. They're concerned about her weight loss associated with finger to cancer. Patient states she has had prior right hip surgery years and years ago by her physician she does not see currently. - Related Data Home Medications Medication Instructions Recorded Confirmed Levothyroxine Sodium [Synthroid] 125 mcg PO MOTUWETHFR 06/20/14 02/26/22 polyethylene glycoL 3350 [Miralax] 17 gm PO DAILY 05/05/17 02/26/22 Aspirin [Adult Low Dose Aspirin EC] 81 mg PO HS 10/19/18 02/26/22 Levothyroxine Sodium [Synthroid] 187.5 tab PO SUSA 10/19/18 02/26/22 Atorvastatin [Lipitor] 20 mg PO HS 02/03/22 02/26/22 Cholecalciferol [Vitamin D3 (25 50 mcg PO DAILY 02/03/22 02/26/22 Mcg = 1000 Iu)] Mirtazapine 7.5 mg PO HS 02/03/22 02/26/22 Multivitamins, Thera [Multivitamin 1 tab PO DAILY 02/03/22 02/26/22 (formulary)] Previous Rx's Medication Instructions Recorded lisinopriL 2.5 mg PO DAILY #1 tablet 02/05/22 Allergies Allergy/AdvReac Type Severity Reaction Status Date / Time amoxicillin Allergy Itching Verified 02/26/22 08:10 tetanus and diphtheria Allergy Redness, Verified 02/26/22 08:10 toxoids swelling epinephrine [From Adrenalin] AdvReac Rapid Verified 02/26/22 08:10 Heart Rate epinephrine HCl AdvReac Rapid Verified 02/26/22 08:10 [From Adrenalin] Heart Rate ibuprofen [From Motrin] AdvReac Unknown Verified 02/26/22 08:10 morphine AdvReac Nausea & Verified 02/26/22 08:10 Vomiting naproxen [From Naprosyn] AdvReac Itching & Verified 02/26/22 08:10 Dizzy Review of Systems ROS Statement: Those systems with pertinent positive or pertinent negative responses have been documented in the HPI. ROS Other: All systems not noted in ROS Statement are negative. Past Medical History Past Medical History: Cancer, Diabetes Mellitus, Hyperlipidemia, Hypertension, Osteoarthritis (OA), Thyroid Disorder, Vascular Disorder Additional Past Medical History / Comment(s): HX Thyroid cancer, varicose veins, Enlarged aorta (2.5cm). UTI LAST MO. HEMORRHOIDS; HX DIVERTICULOSIS. pancreatitic cancer History of Any Multi-Drug Resistant Organisms: None Reported Past Surgical History: Bladder Surgery, Cholecystectomy, Hysterectomy, Joint Replacement, Tubal Ligation Additional Past Surgical History / Comment(s): thyroid removed, total Rt hip replacement, total lt knee. COLONOSCOPY Past Anesthesia/Blood Transfusion Reactions: Postoperative Nausea & Vomiting (PONV) Past Psychological History: No Psychological Hx Reported Smoking Status: Never smoker - Past Family History Brother(s) Family Medical History: Cancer Mother Family Medical History: Coronary Artery Disease (CAD) Additional Family Medical History / Comment(s): deafness. age 88 heart related Father Family Medical History: Pulmonary Embolus Additional Family Medical History / Comment(s): from blood clot from complications of MVA age 72. General Exam Limitations: no limitations General appearance: alert, in no apparent distress Head exam: Present: atraumatic, normocephalic, normal inspection Eye exam: Present: normal appearance, PERRL, EOMI, scleral icterus. Absent: conjunctival injection, periorbital swelling ENT exam: Present: normal exam, normal oropharynx, mucous membranes moist Neck exam: Present: normal inspection, full ROM. Absent: tenderness, meningismus, lymphadenopathy Respiratory exam: Present: normal lung sounds bilaterally. Absent: respiratory distress, wheezes, rales, rhonchi, stridor Cardiovascular Exam: Present: regular rate, normal rhythm, normal heart sounds. Absent: systolic murmur, diastolic murmur, rubs, gallop, clicks GI/Abdominal exam: Present: soft, normal bowel sounds. Absent: distended, tenderness, guarding, rebound, rigid Extremities exam: Present: other (Pain with logrolling, range of motion of the right hip) Neurological exam: Present: alert Skin exam: Present: warm, dry, intact. Absent: normal color, rash Course Vital Signs 04/08/22 11:32 Temperature 97.4 F L Pulse Rate 94 Respiratory 20 Rate Blood Pressure 121/71 O2 Sat by Pulse 99 Oximetry Medical Decision Making - Medical Decision Making 86-year-old female presented for admission right hip. X-rays initially obtained which show any acute abnormality CT was shows evidence of nondisplaced acetabular fracture and pubic rami fracture. On the right. Patient noted to be jaundiced and labs shows evidence of bilirubin 5.5 elevated AST ALT and alk phos case discussed with oncology Dr. Todd on-call recommends patient has CT to rule out obstructive process. I did update family regarding patient's condition and current findings the do not want to have surgery of the right hip as she is 86, has pancreatic cancer. Carpenter this is is unnecessary at this time. CT was ordered of the abdomen and pelvis CT results were updated with Dr. burdick recommended discussion with family regarding symptoms and new findings. I did have a long discussion with family member and patient regarding current symptoms and findings patient will be transferred to [facility] for stent placement as we do not have GI coverage. I did discuss the case with Dr. Lopez in emergency department [facility] accepts transfer I did discuss case with Dr. Mathur this patient has acetabular fracture no family does not want any treatment of this. - Lab Data Result diagrams: 04/08/22 14:01 04/08/22 13:05 Lab Results 04/08/22 04/08/22 Range/Units 13:05 14:01 WBC 8.2 (3.8-10.6) k/uL RBC 3.38 L (3.80-5.40) m/uL Hgb 10.2 L (11.4-16.0) gm/dL Hct 31.4 L (34.0-46.0) % MCV 92.8 D (80.0-100.0) fL MCH 30.1 (25.0-35.0) pg MCHC 32.4 (31.0-37.0) g/dL RDW 20.9 H (11.5-15.5) % Plt Count 302 (150-450) k/uL MPV 9.0 Neutrophils % 80 % Lymphocytes % 12 % Monocytes % 5 % Eosinophils % 1 % Basophils % 1 % Neutrophils # 6.5 (1.3-7.7) k/uL Lymphocytes # 1.0 (1.0-4.8) k/uL Monocytes # 0.4 (0-1.0) k/uL Eosinophils # 0.1 (0-0.7) k/uL Basophils # 0.1 (0-0.2) k/uL Hypochromasia Moderate Anisocytosis Moderate Sodium 124 L (137-145) mmol/L Potassium 5.6 H (3.5-5.1) mmol/L Chloride 92 L (98-107) mmol/L Carbon Dioxide 19 L (22-30) mmol/L Anion Gap 13 mmol/L BUN 16 (7-17) mg/dL Creatinine 0.48 L (0.52-1.04) mg/dL Est GFR (CKD-EPI)AfAm >90 (>60 ml/min/1.73 sqM) Est GFR (CKD-EPI)NonAf 89 (>60 ml/min/1.73 sqM) Glucose 129 H (74-99) mg/dL Calcium 8.2 L (8.4-10.2) mg/dL Total Bilirubin 5.5 H (0.2-1.3) mg/dL AST 380 H (14-36) U/L ALT 233 H (4-34) U/L Alkaline Phosphatase 2000 H (38-126) U/L Total Protein 5.5 L (6.3-8.2) g/dL Albumin 3.1 L (3.5-5.0) g/dL Disposition Clinical Impression: Fall, Common bile duct obstruction, Pancreatic cancer 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 Specs Out of Hospital Transfer - Requested Specifics: Other Emergency Center ([facility])
--- NOTE | 2022-04-08 16:50 | CT ---
EXAMINATION TYPE: CT abdomen pelvis w con CT DLP: 574.7 mGycm, Automated exposure control for dose reduction was used. DATE OF EXAM: 04/08/2022 4:23 PM COMPARISON: CT abdomen pelvis most recent from 02/05/2022. CLINICAL INDICATION:Female, 86 years old with history of Hyperbilirubinemia, pancreatic Cancer; jaund ice, pancreatic ca TECHNIQUE: Standard CT of the abdomen and pelvis following the administration of 100 cc of Isovue 3 00 IV contrast material. Coronal and sagittal reformats were performed. FINDINGS: LOWER CHEST: Posterior dependent subsegmental atelectasis is noted. ABDOMEN LIVER: Increase in size of at least 4 ill-defined hypoattenuating bilobar hepatic lesions. With examp le including a right hepatic lobe 1.6 cm lesion which previously measured 1.0 cm (series 201, image 1 7). GALLBLADDER AND BILE DUCTS: The gallbladder is surgically absent. Severe intra and extrahepatic bilia ry ductal dilatation with the common bile duct measuring up to 2.3 cm. This is significantly progress ed from prior examination. There is abrupt cut off at the pancreatic head mass. PANCREAS: Heterogenous hypoattenuating lesion centered within the pancreatic head is redemonstrated a nd appears slightly more bulky from prior examination. This measures grossly 5.9 x 5.5 cm. There is l oss of fat plane with the distal stomach and proximal duodenum. There is dilatation distal pancreatic duct within the body and tail of the pancreas with atrophy. The duct measures up to 6.5 mm. There is associated occlusion at the portal venous confluence with pain portal vein and splenic vein. The SMV is occluded. Prominent collaterals are identified. The celiac axis appears patent. There is strandin g from the pancreatic mass with complete encasement of the SMA. SPLEEN: Unremarkable. ADRENAL GLANDS: Unremarkable. KIDNEYS AND URETERS: No hydronephrosis or renal calculi. The kidneys enhance symmetrically. Subcentim eter probable right renal cysts are stable. PELVIS BLADDER: Streak artifact limits evaluation. Moderately distended and grossly unremarkable. REPRODUCTIVE: Poorly evaluated due to streak artifact. ABDOMEN & PELVIS STOMACH AND BOWEL: Distal colonic diverticulosis without evidence for acute diverticulitis. No eviden ce of bowel obstruction. PERITONEUM: No evidence of pneumoperitoneum or free fluid. VASCULATURE: No evidence of aortic aneurysm. MUSCULOSKELETAL: Nondisplaced segmental fracture of the right inferior pubic ramus redemonstrated. Wilder btle nondisplaced fracture the posterior acetabulum which is better appreciated on CT right hip the s lacey day. No aggressive osseous lesions. Multilevel degenerative disc disease. LYMPH NODES: Stable enlarged pato hepatis lymphadenopathy. SOFT TISSUE/ABDOMINAL WALL: Mild diffuse anasarca. IMPRESSION: 1. Overall progression of disease with marginal increase in size of pancreatic head mass consistent with known pancreatic cancer. Increased size of several hepatic metastasis. There is again complete e ncasement of the SMA with occlusion of the portal venous confluence and SMV. Stable pato hepatis lym phadenopathy. 2. Severe intra and extra hepatic biliary ductal dilatation with occlusion of the common bile duct at the pancreatic head due to #1. 3. Distal colonic diverticulosis without evidence for acute diverticulitis. 4. Nondisplaced segmental fracture of the right inferior pubic ramus with subtle nondisplaced fractur e of the posterior acetabulum which is better appreciated on CT right hip the same day.
[2022-04-08 18:23] VITALS: BP 124/64; PULSE 79; RESP 18; TEMP 97.1
== END 2022-04-08 18:21 | disposition other institution (70) ==
LOC: EC 11:28
DX: S32.414A Nondisplaced fracture of anterior wall of right acetabulum, initial encounter for closed fracture (principal); S32.501A Unspecified fracture of right pubis, initial encounter for closed fracture; K83.1 Obstruction of bile duct; C78.7 Secondary malignant neoplasm of liver and intrahepatic bile duct; E80.6 Other disorders of bilirubin metabolism; E11.9 Type 2 diabetes mellitus without complications; E78.5 Hyperlipidemia, unspecified; I10 Essential (primary) hypertension; M19.90 Unspecified osteoarthritis, unspecified site; E07.9 Disorder of thyroid, unspecified; Z88.0 Allergy status to penicillin; Z88.7 Allergy status to serum and vaccine; Z88.6 Allergy status to analgesic agent; Z79.82 Long term (current) use of aspirin; Z79.890 Hormone replacement therapy; Z79.899 Other long term (current) drug therapy; W18.30XA Fall on same level, unspecified, initial encounter
CPT/HCPCS: 36415; 80053; 85025; 73502; 74177; 73700; 99285; 96360; Q9967